=== PATIENT | female | born 1960 | race Hispanic/Latino ===

== ENCOUNTER → 2020-12-06 | Day surgery (SDC) | payer OTHER ==
[2020-12-01 15:10] LABS: BASOPHILS # (AUTO) 0.1 (0.0-0.1); BASOPHILS % 0.4 % (0.0-1.0); EOSINOPHILS # (AUTO) 0.2 (0.0-0.4); EOSINOPHILS % 1.6 % (0.0-6.0); HEMATOCRIT 34.6 % (34.2-44.1); HEMOGLOBIN 11.2 g/dL (12.0-16.0); LYMPHOCYTES # (AUTO) 3.3 (1.0-3.2); LYMPHOCYTES % 28.9 % (18.0-39.1); MEAN CORPUSCULAR HEMOGLOBIN 29.6 pg (28-32); MEAN CORPUSCULAR HGB CONC 32.4 g/dL (31-35); MEAN CORPUSCULAR VOLUME 91.5 fL (81-99); MONOCYTES # (AUTO) 0.8 (0.2-0.8); MONOCYTES % 7.3 % (4.4-11.3); NEUTROPHILS # (AUTO) 7.1 (2.1-6.9); NEUTROPHILS % 61.3 % (38.7-80.0); PLATELET COUNT 429 x10e3/uL (140-360); RED BLOOD COUNT 3.78 x10e6/uL (3.6-5.1); RED CELL DISTRIBUTION WIDTH 12.4 % (11.7-14.4)
[2020-12-01 15:18] LABS: INR 0.9; PROTHROMBIN TIME 12.3 seconds (11.9-14.5)
[2020-12-01 15:19] LABS: PARTIAL THROMBOPLASTIN TIME 27.8 seconds (23.8-35.5)
[2020-12-01 15:25] LABS: ALBUMIN 3.3 g/dL (3.5-5.0); ALBUMIN/GLOBULIN RATIO 0.6 (0.8-2.0); ANION GAP 16.2 mmol/L (8-16); CALCIUM 9.9 mg/dL (8.4-10.2); CREATININE, SERUM 0.92 mg/dL (0.57-1.11); POTASSIUM 4.2 mmol/L (3.5-5.1)
[~2020-12-06] VITALS: Ht 167.6 cm; Wt 70.1 kg
[2020-12-06] VITALS (9 sets, daily range): BP systolic 123–150; BP diastolic 66–77
[~2020-12-06] MED LIST: ASPIRIN 325 MG TAB ONE; ASPIRIN CHEW81 MG PO; ATORVASTATIN CA20 MG PO; CARVEDILOL12.5 MG PO; CLOPIDOGREL BISULFATE 75 MG TAB ONE; FENTANYL CITRATE/PF 100MCG/2 ML INJ ONE; GLIMEPIRIDE2 MG PO; HEPARIN SOD/SOD CHLORIDE 2,000 ML ONE; IOPAMIDOL 300MG/ML 100 ML INFUS..BTL IV ONE; LIDOCAINE HCL 2% LOCAL 20 ML VIAL ONE; LOSARTAN POTAS100 MG PO; METFORMIN HCL500 MG PO; MIDAZOLAM HCL 2 MG/2 ML VIAL ONE; PROTONIX20 MG PO; SODIUM CHLORIDE 0.9% 1000ML 1,000 ML ONE
== END | disposition home or self-care (01) ==
LOC: CATH LAB 07:10
PROVIDERS: ATTEND Internal Medicine Cardiovascular Disease
DX: I70.223 Atherosclerosis of native arteries of extremities with rest pain, bilateral legs (principal); I70.92 Chronic total occlusion of artery of the extremities; I70.213 Atherosclerosis of native arteries of extremities with intermittent claudication, bilateral legs; L97.913 Non-pressure chronic ulcer of unspecified part of right lower leg with necrosis of muscle; I10 Essential (primary) hypertension; I87.2 Venous insufficiency (chronic) (peripheral); E78.00 Pure hypercholesterolemia, unspecified; R60.0 Localized edema; E78.5 Hyperlipidemia, unspecified; E08.59 Diabetes mellitus due to underlying condition with other circulatory complications; Z01.812 Encounter for preprocedural laboratory examination; Z20.822 Contact with and (suspected) exposure to COVID-19; Z79.84 Long term (current) use of oral hypoglycemic drugs; Z79.82 Long term (current) use of aspirin; Z83.3 Family history of diabetes mellitus
CPT/HCPCS: 36415; 37228; 76937; 80053; 85025; 85610; 85730; C1760; C1769 ×3; C1887 ×2; J2001; J2250; J3010; J7030; Q9967; U0002; 36247; 75630; 99152; 99153

== ENCOUNTER 2020-12-23 16:15 | Inpatient (IN) | payer OTHER ==
[~2020-12-23] VITALS: Ht 162.6 cm; Wt 70.3 kg
[~2020-12-23 16:15] MED LIST changes: -ASPIRIN 325 MG TAB ONE; -CLOPIDOGREL BISULFATE 75 MG TAB ONE; -FENTANYL CITRATE/PF 100MCG/2 ML INJ ONE; -HEPARIN SOD/SOD CHLORIDE 2,000 ML ONE; -IOPAMIDOL 300MG/ML 100 ML INFUS..BTL IV ONE; -LIDOCAINE HCL 2% LOCAL 20 ML VIAL ONE; -MIDAZOLAM HCL 2 MG/2 ML VIAL ONE; -SODIUM CHLORIDE 0.9% 1000ML 1,000 ML ONE
[2020-12-23] MEDS ORDERED: KETOROLAC TROMETHAMINE 30 MG/ML VIAL ONE (17:19)
[2020-12-23] MEDS ORDERED: LIDOCAINE HCL 2% LOCAL INJ 5 ML SDV VIAL INJ ONE (17:19)
[2020-12-23] MEDS ORDERED: SEVOFLURANE INHAL SOLN 250 ML PEN BTL ONE (17:19)
[2020-12-23] MEDS ORDERED: DEXAMETHASONE SOD PHOS INJ 4 MG/ML SDV ONE (17:19)
[2020-12-23] MEDS ORDERED: PROPOFOL IV EMULSION 10 MG/ML 20 ML VIAL ONE (17:19)
[2020-12-23] MEDS ORDERED: POVIDONE IODINE 0.05% 0.05 % ML PO ONE (17:19)
[2020-12-23] MEDS ORDERED: ONDANSETRON HCL INJ 2MG/ML 2ML 2 MG/ML VIAL ONE (17:19)
[2020-12-23] MEDS ORDERED: CEFEPIME 1 GM in SODIUM CHLORIDE 0.9% 50ML 50 ML IV SCH (18:00)
[2020-12-23] MEDS ORDERED: Vancomycin IV 1 GM in SODIUM CHLORIDE 0.9% 250ML 250 ML IV SCH (18:30)
[2020-12-23 18:44] LABS: BASOPHILS # (AUTO) 0.1 (0.0-0.1); BASOPHILS % 0.4 % (0.0-1.0); EOSINOPHILS # (AUTO) 0.1 (0.0-0.4); EOSINOPHILS % 0.7 % (0.0-6.0); HEMOGLOBIN 9.8 g/dL (12.0-16.0); LYMPHOCYTES # (AUTO) 2.4 (1.0-3.2); LYMPHOCYTES % 13.8 % (18.0-39.1); MEAN CORPUSCULAR HEMOGLOBIN 29.1 pg (28-32); MEAN CORPUSCULAR HGB CONC 31.6 g/dL (31-35); MONOCYTES # (AUTO) 1.3 (0.2-0.8); MONOCYTES % 7.3 % (4.4-11.3); NEUTROPHILS # (AUTO) 13.7 (2.1-6.9); PLATELET COUNT 558 x10e3/uL (140-360); RED BLOOD COUNT 3.37 x10e6/uL (3.6-5.1); RED CELL DISTRIBUTION WIDTH 12.5 % (11.7-14.4)
[2020-12-23 19:01] LABS: ALBUMIN 2.9 g/dL (3.5-5.0); ALBUMIN/GLOBULIN RATIO 0.5 (0.8-2.0); ANION GAP 17.4 mmol/L (8-16); CREATININE, SERUM 1.09 mg/dL (0.57-1.11); POTASSIUM 4.4 mmol/L (3.5-5.1)
[2020-12-23 20:13] LABS: INR 1.04; PROTHROMBIN TIME 13.8 seconds (11.9-14.5)
[2020-12-23 20:14] LABS: PARTIAL THROMBOPLASTIN TIME 39.8 seconds (23.8-35.5)
[2020-12-23] MEDS ORDERED: DEXTROSE 50% SYRINGE 50 ML IV PRN (20:30)
[2020-12-23] MEDS: INSULIN REGULAR, HUMAN 100 UNIT/1 ML SQ SCH (21:00)
[2020-12-24] VITALS (7 sets, daily range): BP systolic 121–144; BP diastolic 56–85
[2020-12-24] MEDS: SODIUM CHLORIDE 0.9% 1000ML 1,000 ML IV SCH ×3 (00:30→12:30)
[2020-12-24] MEDS: CEFEPIME 1 GM in SODIUM CHLORIDE 0.9% 50ML 50 ML IV SCH ×2 (00:30→08:20)
[2020-12-24] MEDS: MORPHINE SULFATE INJ 2 MG/ML SYR IV PRN ×4 (00:30→17:14)
[2020-12-24] MEDS: ONDANSETRON HCL INJ 2MG/ML 2ML 2 MG/ML VIAL IV PRN ×2 (00:40→04:54)
[2020-12-24] MEDS: Vancomycin IV 1 GM in SODIUM CHLORIDE 0.9% 250ML 250 ML IV SCH ×3 (02:00→20:47)
[2020-12-24] MEDS: INSULIN REGULAR, HUMAN 100 UNIT/1 ML SQ SCH ×4 (07:30→20:45)
[2020-12-24 08:50] LABS: BASOPHILS # (AUTO) 0.1 (0.0-0.1); BASOPHILS % 0.4 % (0.0-1.0); EOSINOPHILS # (AUTO) 0.2 (0.0-0.4); HEMATOCRIT 26.4 % (34.2-44.1); HEMOGLOBIN 8.7 g/dL (12.0-16.0); LYMPHOCYTES # (AUTO) 2.3 (1.0-3.2); LYMPHOCYTES % 15.9 % (18.0-39.1); MEAN CORPUSCULAR HEMOGLOBIN 29.6 pg (28-32); MEAN CORPUSCULAR VOLUME 89.8 fL (81-99); MONOCYTES # (AUTO) 1.2 (0.2-0.8); NEUTROPHILS # (AUTO) 10.6 (2.1-6.9); NEUTROPHILS % 73.9 % (38.7-80.0); PLATELET COUNT 507 x10e3/uL (140-360); RED BLOOD COUNT 2.94 x10e6/uL (3.6-5.1); RED CELL DISTRIBUTION WIDTH 12.4 % (11.7-14.4)
[2020-12-24 09:12] LABS: ALBUMIN 2.4 g/dL (3.5-5.0); ALBUMIN/GLOBULIN RATIO 0.4 (0.8-2.0); ANION GAP 15.3 mmol/L (8-16); CALCIUM 9.2 mg/dL (8.4-10.2); CREATININE, SERUM 0.83 mg/dL (0.57-1.11); POTASSIUM 4.3 mmol/L (3.5-5.1)
[2020-12-24] MEDS: PIPERACILLIN/TAZOBACTAM 3.375 GM in SODIUM CHLORIDE 0.9% 50ML 50 ML IV SCH ×2 (12:30→17:11)
[2020-12-24] MEDS: GLIMEPIRIDE 2 MG TAB PO SCH (17:10)
[2020-12-24] MEDS: METFORMIN HCL 500 MG TAB PO SCH (17:11)
[2020-12-24] MEDS: CARVEDILOL 12.5 MG TAB PO SCH (17:11)
[2020-12-24] MEDS: ATORVASTATIN 40 MG TAB PO SCH (20:45)
[2020-12-25] VITALS: BP 123/67
[2020-12-25] MEDS: SODIUM CHLORIDE 0.9% 1000ML 1,000 ML IV SCH ×4 (00:26→21:30)
[2020-12-25] MEDS: MORPHINE SULFATE INJ 2 MG/ML SYR IV PRN ×2 (00:26→09:58)
[2020-12-25] MEDS: PIPERACILLIN/TAZOBACTAM 3.375 GM in SODIUM CHLORIDE 0.9% 50ML 50 ML IV SCH ×2 (00:26→06:13)
[2020-12-25 04:00] VITALS: BP 116/65
[2020-12-25 06:29] LABS: BASOPHILS # (AUTO) 0.1 (0.0-0.1); BASOPHILS % 0.4 % (0.0-1.0); EOSINOPHILS # (AUTO) 0.2 (0.0-0.4); EOSINOPHILS % 1.3 % (0.0-6.0); HEMATOCRIT 24.1 % (34.2-44.1); HEMOGLOBIN 7.6 g/dL (12.0-16.0); LYMPHOCYTES # (AUTO) 3.5 (1.0-3.2); LYMPHOCYTES % 25.4 % (18.0-39.1); MEAN CORPUSCULAR HEMOGLOBIN 29.1 pg (28-32); MEAN CORPUSCULAR HGB CONC 31.5 g/dL (31-35); MEAN CORPUSCULAR VOLUME 92.3 fL (81-99); MONOCYTES # (AUTO) 1.4 (0.2-0.8); MONOCYTES % 10.1 % (4.4-11.3); NEUTROPHILS # (AUTO) 8.4 (2.1-6.9); NEUTROPHILS % 61.8 % (38.7-80.0); PLATELET COUNT 515 x10e3/uL (140-360); RED BLOOD COUNT 2.61 x10e6/uL (3.6-5.1); RED CELL DISTRIBUTION WIDTH 12.5 % (11.7-14.4)
[2020-12-25] MEDS ORDERED: SODIUM CHLORIDE 0.9% 50ML 50 ML ONE (06:46)
[2020-12-25] MEDS: INSULIN REGULAR, HUMAN 100 UNIT/1 ML SQ SCH ×4 (07:30→21:00)
[2020-12-25 07:59] VITALS: BP 119/55
[2020-12-25] MEDS: ASPIRIN 81 MG CHEW TAB PO SCH (09:56)
[2020-12-25] MEDS: Vancomycin IV 1 GM in SODIUM CHLORIDE 0.9% 250ML 250 ML IV SCH (09:56)
[2020-12-25] MEDS: METFORMIN HCL 500 MG TAB PO SCH ×2 (09:56→16:52)
[2020-12-25] MEDS: GLIMEPIRIDE 2 MG TAB PO SCH ×2 (09:56→16:51)
[2020-12-25] MEDS: CARVEDILOL 12.5 MG TAB PO SCH ×2 (09:57→16:52)
[2020-12-25] MEDS: PANTOPRAZOLE SOD 40 MG TABEC PO SCH (09:57)
[2020-12-25] MEDS: LOSARTAN POTASSIUM 100 MG TAB PO SCH (09:57)
[2020-12-25] MEDS: ONDANSETRON HCL INJ 2MG/ML 2ML 2 MG/ML VIAL IV PRN (09:58)
[2020-12-25 11:58] VITALS: BP 107/53
[2020-12-25] MEDS ORDERED: CLINDAMYCIN PHOS 900MG/ 50ML 50 ML IV SCH (12:00)
[2020-12-25 16:01] VITALS: BP 118/55
[2020-12-25] MEDS: CLINDAMYCIN PHOS 900MG/ 50ML 50 ML IV SCH ×2 (16:50→21:11)
[2020-12-25 20:00] VITALS: BP 131/72
[2020-12-25] MEDS: ATORVASTATIN 40 MG TAB PO SCH (21:11)
[2020-12-26] VITALS (7 sets, daily range): BP systolic 118–153; BP diastolic 59–79
[2020-12-26] MEDS: CLINDAMYCIN PHOS 900MG/ 50ML 50 ML IV SCH ×4 (03:57→21:45)
[2020-12-26] MEDS: SODIUM CHLORIDE 0.9% 1000ML 1,000 ML IV SCH ×2 (03:58→21:55)
[2020-12-26] MEDS: INSULIN REGULAR, HUMAN 100 UNIT/1 ML SQ SCH ×4 (07:30→21:00)
[2020-12-26] MEDS: GLIMEPIRIDE 2 MG TAB PO SCH ×2 (08:19→17:00)
[2020-12-26] MEDS: PANTOPRAZOLE SOD 40 MG TABEC PO SCH (08:19)
[2020-12-26] MEDS: METFORMIN HCL 500 MG TAB PO SCH ×2 (08:19→17:00)
[2020-12-26] MEDS: ASPIRIN 81 MG CHEW TAB PO SCH (08:19)
[2020-12-26] MEDS: ONDANSETRON HCL INJ 2MG/ML 2ML 2 MG/ML VIAL IV PRN ×3 (08:25→18:25)
[2020-12-26] MEDS: CARVEDILOL 12.5 MG TAB PO SCH ×2 (08:25→17:15)
[2020-12-26] MEDS: CEFTRIAXONE 2 GM in SODIUM CHLORIDE 0.9% 100 ML IV SCH (08:25)
[2020-12-26] MEDS: MORPHINE SULFATE INJ 2 MG/ML SYR IV PRN ×3 (08:25→18:25)
[2020-12-26] MEDS: LOSARTAN POTASSIUM 100 MG TAB PO SCH (08:25)
[2020-12-26] MEDS: ATORVASTATIN 40 MG TAB PO SCH (21:55)
[2020-12-27] VITALS (9 sets, daily range): BP systolic 113–157; BP diastolic 58–71
[2020-12-27] MEDS: CLINDAMYCIN PHOS 900MG/ 50ML 50 ML IV SCH ×4 (04:06→21:00)
[2020-12-27] MEDS: SODIUM CHLORIDE 0.9% 1000ML 1,000 ML IV SCH ×4 (04:06→17:44)
[2020-12-27] MEDS: MORPHINE SULFATE INJ 2 MG/ML SYR IV PRN ×3 (04:07→17:44)
[2020-12-27] MEDS: ONDANSETRON HCL INJ 2MG/ML 2ML 2 MG/ML VIAL IV PRN ×3 (05:00→17:44)
[2020-12-27] MEDS: INSULIN REGULAR, HUMAN 100 UNIT/1 ML SQ SCH ×4 (07:30→20:53)
[2020-12-27] MEDS: ASPIRIN 81 MG CHEW TAB PO SCH (08:25)
[2020-12-27] MEDS: GLIMEPIRIDE 2 MG TAB PO SCH ×2 (08:25→16:51)
[2020-12-27] MEDS: CEFTRIAXONE 2 GM in SODIUM CHLORIDE 0.9% 100 ML IV SCH (08:25)
[2020-12-27] MEDS: PANTOPRAZOLE SOD 40 MG TABEC PO SCH (08:25)
[2020-12-27] MEDS: CARVEDILOL 12.5 MG TAB PO SCH ×2 (08:25→16:52)
[2020-12-27] MEDS: METFORMIN HCL 500 MG TAB PO SCH ×2 (08:25→16:51)
[2020-12-27] MEDS: LOSARTAN POTASSIUM 100 MG TAB PO SCH (08:25)
[2020-12-27] MEDS: ATORVASTATIN 40 MG TAB PO SCH (21:00)
[2020-12-27] MEDS: ACETAMINOPHEN 325 MG TAB PO PRN (21:01)
[2020-12-28 01:36] VITALS: BP 116/70
[2020-12-28] MEDS: CLINDAMYCIN PHOS 900MG/ 50ML 50 ML IV SCH ×4 (04:27→21:33)
[2020-12-28] MEDS: MORPHINE SULFATE INJ 2 MG/ML SYR IV PRN ×2 (04:28→20:15)
[2020-12-28] MEDS: SODIUM CHLORIDE 0.9% 1000ML 1,000 ML IV SCH ×2 (05:27→12:00)
[2020-12-28 05:53] VITALS: BP 142/75
[2020-12-28] MEDS ORDERED: BETAMETHASONE DISODIUM PHOS 6 MG/ML VIAL ONE (06:34)
[2020-12-28] MEDS ORDERED: BUPIVACAINE HCL 0.5% INJ 30 ML VIAL INJ ONE (06:34)
[2020-12-28] MEDS ORDERED: LIDOCAINE HCL 1% LOCAL INJ 20 ML VIAL ONE (06:34)
[2020-12-28 07:02] LABS: BASOPHILS % 0.3 % (0.0-1.0); EOSINOPHILS # (AUTO) 0.2 (0.0-0.4); EOSINOPHILS % 1.8 % (0.0-6.0); HEMATOCRIT 23.8 % (34.2-44.1); LYMPHOCYTES # (AUTO) 2.4 (1.0-3.2); LYMPHOCYTES % 18.3 % (18.0-39.1); MEAN CORPUSCULAR HEMOGLOBIN 31.5 pg (28-32); MEAN CORPUSCULAR HGB CONC 33.6 g/dL (31-35); MEAN CORPUSCULAR VOLUME 93.7 fL (81-99); MONOCYTES # (AUTO) 1.1 (0.2-0.8); MONOCYTES % 8.5 % (4.4-11.3); NEUTROPHILS # (AUTO) 9.2 (2.1-6.9); NEUTROPHILS % 70.2 % (38.7-80.0); PLATELET COUNT 548 x10e3/uL (140-360); RED BLOOD COUNT 2.54 x10e6/uL (3.6-5.1); RED CELL DISTRIBUTION WIDTH 13.1 % (11.7-14.4)
[2020-12-28] MEDS: INSULIN REGULAR, HUMAN 100 UNIT/1 ML SQ SCH ×4 (07:30→20:33)
[2020-12-28] MEDS ORDERED: MUPIROCIN 2% OINT 22 GM TUBE ONE (07:38)
[2020-12-28 09:00] VITALS: BP 119/70
[2020-12-28] MEDS: METFORMIN HCL 500 MG TAB PO SCH ×2 (09:49→16:32)
[2020-12-28] MEDS: GLIMEPIRIDE 2 MG TAB PO SCH ×2 (09:49→16:31)
[2020-12-28] MEDS: CEFTRIAXONE 2 GM in SODIUM CHLORIDE 0.9% 100 ML IV SCH (09:49)
[2020-12-28] MEDS: ASPIRIN 81 MG CHEW TAB PO SCH (09:49)
[2020-12-28] MEDS: LOSARTAN POTASSIUM 100 MG TAB PO SCH (09:51)
[2020-12-28] MEDS: PANTOPRAZOLE SOD 40 MG TABEC PO SCH (09:51)
[2020-12-28] MEDS: CARVEDILOL 12.5 MG TAB PO SCH ×2 (09:51→16:32)
[2020-12-28 12:03] VITALS: BP 124/68
[2020-12-28 16:03] VITALS: BP 123/75
[2020-12-28 20:00] VITALS: BP 149/68
[2020-12-28] MEDS: ATORVASTATIN 40 MG TAB PO SCH (20:33)
[2020-12-28] MEDS: ONDANSETRON HCL INJ 2MG/ML 2ML 2 MG/ML VIAL IV PRN (20:50)
[2020-12-28] MEDS: HYDROCODONE/APAP 7.5MG-325MG 1 EA TAB PO PRN (23:16)
[2020-12-29] VITALS (9 sets, daily range): BP systolic 117–147; BP diastolic 70–86
[2020-12-29] MEDS: SODIUM CHLORIDE 0.9% 1000ML 1,000 ML IV SCH ×3 (04:25→12:45)
[2020-12-29] MEDS: CLINDAMYCIN PHOS 900MG/ 50ML 50 ML IV SCH ×4 (04:25→22:12)
[2020-12-29 05:38] LABS: BASOPHILS # (AUTO) 0.1 (0.0-0.1); BASOPHILS % 0.3 % (0.0-1.0); EOSINOPHILS # (AUTO) 0.1 (0.0-0.4); EOSINOPHILS % 0.7 % (0.0-6.0); HEMATOCRIT 24.6 % (34.2-44.1); HEMOGLOBIN 7.7 g/dL (12.0-16.0); LYMPHOCYTES # (AUTO) 3.3 (1.0-3.2); LYMPHOCYTES % 17.3 % (18.0-39.1); MEAN CORPUSCULAR HEMOGLOBIN 28.9 pg (28-32); MEAN CORPUSCULAR HGB CONC 31.3 g/dL (31-35); MEAN CORPUSCULAR VOLUME 92.5 fL (81-99); MONOCYTES # (AUTO) 1.6 (0.2-0.8); MONOCYTES % 8.5 % (4.4-11.3); NEUTROPHILS # (AUTO) 13.6 (2.1-6.9); NEUTROPHILS % 72.2 % (38.7-80.0); PLATELET COUNT 566 x10e3/uL (140-360); RED BLOOD COUNT 2.66 x10e6/uL (3.6-5.1); RED CELL DISTRIBUTION WIDTH 12.5 % (11.7-14.4)
[2020-12-29 05:59] LABS: ALBUMIN 2.2 g/dL (3.5-5.0); ALBUMIN/GLOBULIN RATIO 0.4 (0.8-2.0); ANION GAP 17.8 mmol/L (8-16); CREATININE, SERUM 0.97 mg/dL (0.57-1.11); POTASSIUM 3.8 mmol/L (3.5-5.1)
[2020-12-29] MEDS: INSULIN REGULAR, HUMAN 100 UNIT/1 ML SQ SCH ×4 (07:30→20:35)
[2020-12-29] MEDS: GLIMEPIRIDE 2 MG TAB PO SCH (07:45)
[2020-12-29] MEDS: METFORMIN HCL 500 MG TAB PO SCH ×2 (07:45→15:29)
[2020-12-29] MEDS: ONDANSETRON HCL INJ 2MG/ML 2ML 2 MG/ML VIAL IV PRN (07:55)
[2020-12-29] MEDS: MORPHINE SULFATE INJ 2 MG/ML SYR IV PRN (07:55)
[2020-12-29] MEDS: PANTOPRAZOLE SOD 40 MG TABEC PO SCH (08:30)
[2020-12-29] MEDS: LOSARTAN POTASSIUM 100 MG TAB PO SCH (08:30)
[2020-12-29] MEDS: CEFTRIAXONE 2 GM in SODIUM CHLORIDE 0.9% 100 ML IV SCH (08:30)
[2020-12-29] MEDS: ASPIRIN 81 MG CHEW TAB PO SCH (08:30)
[2020-12-29] MEDS: CARVEDILOL 12.5 MG TAB PO SCH ×2 (08:30→16:07)
[2020-12-29] MEDS ORDERED: LOPERAMIDE HCL 2 MG CAP PO PRN (09:30)
[2020-12-29] MEDS: COLLAGENASE 5 GM TUBE TP SCH (12:41)
[2020-12-29] MEDS: HYDROCODONE/APAP 7.5MG-325MG 1 EA TAB PO PRN ×2 (14:15→20:53)
[2020-12-29] MEDS: ATORVASTATIN 40 MG TAB PO SCH (20:53)
[2020-12-30] VITALS (7 sets, daily range): BP systolic 90–156; BP diastolic 46–76
[2020-12-30] MEDS: MORPHINE SULFATE INJ 2 MG/ML SYR IV PRN ×3 (00:20→15:00)
[2020-12-30] MEDS: SODIUM CHLORIDE 0.9% 1000ML 1,000 ML IV SCH ×4 (04:30→20:51)
[2020-12-30 04:57] LABS: BASOPHILS # (AUTO) 0.1 (0.0-0.1); BASOPHILS % 0.3 % (0.0-1.0); EOSINOPHILS # (AUTO) 0.3 (0.0-0.4); EOSINOPHILS % 1.7 % (0.0-6.0); HEMATOCRIT 21.4 % (34.2-44.1); LYMPHOCYTES # (AUTO) 3.7 (1.0-3.2); MEAN CORPUSCULAR HEMOGLOBIN 29.7 pg (28-32); MEAN CORPUSCULAR HGB CONC 32.7 g/dL (31-35); MEAN CORPUSCULAR VOLUME 90.7 fL (81-99); MONOCYTES # (AUTO) 1.4 (0.2-0.8); MONOCYTES % 8.8 % (4.4-11.3); NEUTROPHILS # (AUTO) 9.8 (2.1-6.9); NEUTROPHILS % 63.4 % (38.7-80.0); PLATELET COUNT 470 x10e3/uL (140-360); RED BLOOD COUNT 2.36 x10e6/uL (3.6-5.1); RED CELL DISTRIBUTION WIDTH 12.6 % (11.7-14.4)
[2020-12-30 05:21] LABS: ANION GAP 12.8 mmol/L (8-16); CALCIUM 8.4 mg/dL (8.4-10.2); CREATININE, SERUM 0.89 mg/dL (0.57-1.11); POTASSIUM 3.8 mmol/L (3.5-5.1)
[2020-12-30] MEDS: CLINDAMYCIN PHOS 900MG/ 50ML 50 ML IV SCH (06:11)
[2020-12-30] MEDS: ONDANSETRON HCL INJ 2MG/ML 2ML 2 MG/ML VIAL IV PRN (06:32)
[2020-12-30] MEDS: INSULIN REGULAR, HUMAN 100 UNIT/1 ML SQ SCH ×4 (07:30→21:23)
[2020-12-30] MEDS: CEFTRIAXONE 2 GM in SODIUM CHLORIDE 0.9% 100 ML IV SCH (09:01)
[2020-12-30] MEDS: ASPIRIN 81 MG CHEW TAB PO SCH (09:04)
[2020-12-30] MEDS: METFORMIN HCL 500 MG TAB PO SCH ×2 (09:04→17:00)
[2020-12-30] MEDS: PANTOPRAZOLE SOD 40 MG TABEC PO SCH (09:07)
[2020-12-30] MEDS: CARVEDILOL 12.5 MG TAB PO SCH ×2 (09:07→17:39)
[2020-12-30] MEDS: LOSARTAN POTASSIUM 100 MG TAB PO SCH (09:07)
[2020-12-30] MEDS ORDERED: SODIUM CHLORIDE 0.9% 250ML 250 ML IV ONE (09:30)
[2020-12-30] MEDS: MEROPENEM 1 GM in SODIUM CHLORIDE 0.9% 100 ML IV SCH ×2 (14:00→21:16)
[2020-12-30] MEDS: ATORVASTATIN 40 MG TAB PO SCH (20:52)
[2020-12-31] VITALS (8 sets, daily range): BP systolic 126–153; BP diastolic 49–69
[2020-12-31] MEDS: SODIUM CHLORIDE 0.9% 1000ML 1,000 ML IV SCH ×3 (04:22→20:33)
[2020-12-31] MEDS: MEROPENEM 1 GM in SODIUM CHLORIDE 0.9% 100 ML IV SCH ×3 (05:28→21:11)
[2020-12-31] MEDS: INSULIN REGULAR, HUMAN 100 UNIT/1 ML SQ SCH ×4 (07:30→21:10)
[2020-12-31] MEDS: METFORMIN HCL 500 MG TAB PO SCH ×2 (08:00→17:02)
[2020-12-31] MEDS: ONDANSETRON HCL INJ 2MG/ML 2ML 2 MG/ML VIAL IV PRN (08:31)
[2020-12-31] MEDS: HYDROCODONE/APAP 7.5MG-325MG 1 EA TAB PO PRN ×2 (08:31→20:34)
[2020-12-31] MEDS: ASPIRIN 81 MG CHEW TAB PO SCH (09:00)
[2020-12-31] MEDS: CARVEDILOL 12.5 MG TAB PO SCH ×2 (09:00→17:02)
[2020-12-31] MEDS: PANTOPRAZOLE SOD 40 MG TABEC PO SCH (09:00)
[2020-12-31] MEDS: LOSARTAN POTASSIUM 100 MG TAB PO SCH (09:00)
[2020-12-31] MEDS: ATORVASTATIN 40 MG TAB PO SCH (20:33)
[2021-01-01] VITALS (8 sets, daily range): BP systolic 145–170; BP diastolic 63–73
[2021-01-01] MEDS: SODIUM CHLORIDE 0.9% 1000ML 1,000 ML IV SCH (04:26)
[2021-01-01] MEDS: MEROPENEM 1 GM in SODIUM CHLORIDE 0.9% 100 ML IV SCH ×3 (05:17→22:00)
[2021-01-01] MEDS: ONDANSETRON HCL INJ 2MG/ML 2ML 2 MG/ML VIAL IV PRN (05:32)
[2021-01-01] MEDS: HYDROCODONE/APAP 7.5MG-325MG 1 EA TAB PO PRN ×3 (05:32→22:56)
[2021-01-01 06:35] LABS: HEMATOCRIT 29.1 % (34.2-44.1); HEMOGLOBIN 9.3 g/dL (12.0-16.0); MEAN CORPUSCULAR HEMOGLOBIN 29.2 pg (28-32); MEAN CORPUSCULAR VOLUME 91.5 fL (81-99); PLATELET COUNT 536 x10e3/uL (140-360); RED BLOOD COUNT 3.18 x10e6/uL (3.6-5.1); RED CELL DISTRIBUTION WIDTH 13.5 % (11.7-14.4)
[2021-01-01 06:54] LABS: ANION GAP 14.3 mmol/L (8-16); CALCIUM 9.3 mg/dL (8.4-10.2); CREATININE, SERUM 0.84 mg/dL (0.57-1.11); POTASSIUM 4.3 mmol/L (3.5-5.1)
[2021-01-01] MEDS: INSULIN REGULAR, HUMAN 100 UNIT/1 ML SQ SCH ×4 (07:30→21:00)
[2021-01-01] MEDS: CARVEDILOL 12.5 MG TAB PO SCH ×2 (08:27→17:00)
[2021-01-01] MEDS: METFORMIN HCL 500 MG TAB PO SCH ×2 (08:27→17:00)
[2021-01-01] MEDS: ASPIRIN 81 MG CHEW TAB PO SCH (08:27)
[2021-01-01] MEDS: LOSARTAN POTASSIUM 100 MG TAB PO SCH (08:28)
[2021-01-01] MEDS: PANTOPRAZOLE SOD 40 MG TABEC PO SCH (08:28)
[2021-01-01] MEDS ORDERED: HYDRALAZINE HCL 20 MG/ML VIAL IV PRN (13:30)
[2021-01-01 14:28] LABS: EOSINOPHILS % (MANUAL) 4 % (0-7); LYMPHOCYTES % (MANUAL) 14 % (19-48); MONOCYTES % (MANUAL) 8 % (3.4-9.0); NEUTROPHILS % (MANUAL) 74 % (40-74)
[2021-01-01 14:29] LABS: PLATELET ESTIMATE MARKEDLY INCREASED; PLATELET MORPHOLOGY COMMENT NORMAL
[2021-01-01 14:30] LABS: HYPOCHROMASIA SLIGHT
[2021-01-01] MEDS: GLIMEPIRIDE 2 MG TAB PO SCH (17:00)
[2021-01-01] MEDS: COLLAGENASE 5 GM TUBE TP SCH (18:00)
[2021-01-01] MEDS: ATORVASTATIN 40 MG TAB PO SCH (21:00)
[2021-01-02] VITALS (8 sets, daily range): BP systolic 130–171; BP diastolic 54–84
[2021-01-02] MEDS: MEROPENEM 1 GM in SODIUM CHLORIDE 0.9% 100 ML IV SCH ×3 (06:17→21:29)
[2021-01-02] MEDS: HYDROCODONE/APAP 7.5MG-325MG 1 EA TAB PO PRN ×2 (06:18→21:30)
[2021-01-02] MEDS: ACETAMINOPHEN 325 MG TAB PO PRN (07:16)
[2021-01-02] MEDS: ONDANSETRON HCL INJ 2MG/ML 2ML 2 MG/ML VIAL IV PRN (07:16)
[2021-01-02] MEDS: INSULIN REGULAR, HUMAN 100 UNIT/1 ML SQ SCH ×4 (07:30→20:46)
[2021-01-02] MEDS: GLIMEPIRIDE 2 MG TAB PO SCH ×2 (08:00→09:00)
[2021-01-02] MEDS: METFORMIN HCL 500 MG TAB PO SCH ×2 (08:00→17:00)
[2021-01-02] MEDS ORDERED: AMLODIPINE BESYLATE 5 MG TAB PO SCH (09:00)
[2021-01-02] MEDS: ASPIRIN 81 MG CHEW TAB PO SCH (09:13)
[2021-01-02] MEDS: CARVEDILOL 12.5 MG TAB PO SCH ×2 (09:13→17:00)
[2021-01-02] MEDS: PANTOPRAZOLE SOD 40 MG TABEC PO SCH (09:14)
[2021-01-02] MEDS: LOSARTAN POTASSIUM 100 MG TAB PO SCH (09:14)
[2021-01-02 16:23] LABS: BASOPHILS # (AUTO) 0.1 (0.0-0.1); BASOPHILS % 0.4 % (0.0-1.0); EOSINOPHILS # (AUTO) 0.2 (0.0-0.4); EOSINOPHILS % 1.4 % (0.0-6.0); HEMATOCRIT 32.3 % (34.2-44.1); HEMOGLOBIN 10.4 g/dL (12.0-16.0); LYMPHOCYTES # (AUTO) 3.7 (1.0-3.2); LYMPHOCYTES % 25.8 % (18.0-39.1); MEAN CORPUSCULAR HEMOGLOBIN 28.4 pg (28-32); MEAN CORPUSCULAR HGB CONC 32.2 g/dL (31-35); MEAN CORPUSCULAR VOLUME 88.3 fL (81-99); MONOCYTES # (AUTO) 1.3 (0.2-0.8); NEUTROPHILS # (AUTO) 8.9 (2.1-6.9); NEUTROPHILS % 62.7 % (38.7-80.0); PLATELET COUNT 556 x10e3/uL (140-360); RED BLOOD COUNT 3.66 x10e6/uL (3.6-5.1)
[2021-01-02] MEDS: ATORVASTATIN 40 MG TAB PO SCH (21:29)
[2021-01-03] VITALS (8 sets, daily range): BP systolic 116–143; BP diastolic 61–76
[2021-01-03] MEDS: MEROPENEM 1 GM in SODIUM CHLORIDE 0.9% 100 ML IV SCH ×3 (06:02→21:58)
[2021-01-03] MEDS: ONDANSETRON HCL INJ 2MG/ML 2ML 2 MG/ML VIAL IV PRN (07:19)
[2021-01-03] MEDS: INSULIN REGULAR, HUMAN 100 UNIT/1 ML SQ SCH ×4 (07:30→20:23)
[2021-01-03] MEDS: CARVEDILOL 12.5 MG TAB PO SCH ×2 (09:30→17:05)
[2021-01-03] MEDS: PANTOPRAZOLE SOD 40 MG TABEC PO SCH (09:30)
[2021-01-03] MEDS: AMLODIPINE BESYLATE 10 MG TAB PO SCH (09:30)
[2021-01-03] MEDS: METFORMIN HCL 500 MG TAB PO SCH ×2 (09:30→17:50)
[2021-01-03] MEDS: GLIMEPIRIDE 2 MG TAB PO SCH ×2 (09:30→17:50)
[2021-01-03] MEDS: LOSARTAN POTASSIUM 100 MG TAB PO SCH (09:30)
[2021-01-03] MEDS: ASPIRIN 81 MG CHEW TAB PO SCH (09:30)
[2021-01-03] MEDS: HYDROCODONE/APAP 7.5MG-325MG 1 EA TAB PO PRN ×2 (09:50→13:45)
[2021-01-03] MEDS: HYDROMORPHONE 1MG/1ML INJ IV PRN (17:05)
[2021-01-03] MEDS: ATORVASTATIN 40 MG TAB PO SCH (21:58)
[2021-01-04] VITALS (8 sets, daily range): BP systolic 117–132; BP diastolic 59–110
[2021-01-04 05:05] LABS: HEMATOCRIT 31.6 % (34.2-44.1); HEMOGLOBIN 10.2 g/dL (12.0-16.0); MEAN CORPUSCULAR HEMOGLOBIN 28.6 pg (28-32); MEAN CORPUSCULAR HGB CONC 32.3 g/dL (31-35); MEAN CORPUSCULAR VOLUME 88.5 fL (81-99); PLATELET COUNT 575 x10e3/uL (140-360); RED BLOOD COUNT 3.57 x10e6/uL (3.6-5.1); RED CELL DISTRIBUTION WIDTH 12.9 % (11.7-14.4)
[2021-01-04 05:31] LABS: CALCIUM 9.4 mg/dL (8.4-10.2); CREATININE, SERUM 0.97 mg/dL (0.57-1.11)
[2021-01-04] MEDS: MEROPENEM 1 GM in SODIUM CHLORIDE 0.9% 100 ML IV SCH ×3 (05:43→21:27)
[2021-01-04 07:29] LABS: EOSINOPHILS % (MANUAL) 1 % (0-7); LYMPHOCYTES % (MANUAL) 21 % (19-48); MONOCYTES % (MANUAL) 5 % (3.4-9.0); NEUTROPHILS % (MANUAL) 71 % (40-74); PLATELET ESTIMATE ADEQUATE; PLATELET MORPHOLOGY COMMENT NORMAL; RBC MORPHOLOGY COMMENT NORMAL
[2021-01-04] MEDS: INSULIN REGULAR, HUMAN 100 UNIT/1 ML SQ SCH ×4 (08:30→21:00)
[2021-01-04] MEDS: ASPIRIN 81 MG CHEW TAB PO SCH (08:55)
[2021-01-04] MEDS: PANTOPRAZOLE SOD 40 MG TABEC PO SCH (08:55)
[2021-01-04] MEDS: METFORMIN HCL 500 MG TAB PO SCH ×2 (08:55→16:27)
[2021-01-04] MEDS: GLIMEPIRIDE 2 MG TAB PO SCH ×2 (08:55→16:27)
[2021-01-04] MEDS: CARVEDILOL 12.5 MG TAB PO SCH ×2 (08:56→16:27)
[2021-01-04] MEDS: LOSARTAN POTASSIUM 100 MG TAB PO SCH (08:56)
[2021-01-04] MEDS: ONDANSETRON HCL INJ 2MG/ML 2ML 2 MG/ML VIAL IV PRN (08:56)
[2021-01-04] MEDS: AMLODIPINE BESYLATE 10 MG TAB PO SCH (08:56)
[2021-01-04] MEDS: ACETAMINOPHEN 325 MG TAB PO PRN (11:47)
[2021-01-04] MEDS: HYDROMORPHONE 1MG/1ML INJ IV PRN (13:44)
[2021-01-04] MEDS ORDERED: LIDOCAINE HCL 1% LOCAL INJ 20 ML VIAL INJ NR (14:00)
[2021-01-04] MEDS: ATORVASTATIN 40 MG TAB PO SCH (21:20)
[2021-01-05] VITALS (8 sets, daily range): BP systolic 114–138; BP diastolic 58–76
[2021-01-05] MEDS: MEROPENEM 1 GM in SODIUM CHLORIDE 0.9% 100 ML IV SCH ×3 (06:55→21:14)
[2021-01-05] MEDS ORDERED: LIDOCAINE HCL 1% LOCAL INJ 20 ML VIAL INJ NR (08:15)
[2021-01-05] MEDS: HYDROMORPHONE 1MG/1ML INJ IV PRN ×2 (08:23→22:17)
[2021-01-05] MEDS: ONDANSETRON HCL INJ 2MG/ML 2ML 2 MG/ML VIAL IV PRN ×2 (08:24→22:17)
[2021-01-05] MEDS: GLIMEPIRIDE 2 MG TAB PO SCH ×2 (08:25→16:02)
[2021-01-05] MEDS: CARVEDILOL 12.5 MG TAB PO SCH ×2 (08:25→16:02)
[2021-01-05] MEDS: PANTOPRAZOLE SOD 40 MG TABEC PO SCH (08:25)
[2021-01-05] MEDS: ASPIRIN 81 MG CHEW TAB PO SCH (08:25)
[2021-01-05] MEDS: METFORMIN HCL 500 MG TAB PO SCH ×2 (08:25→16:02)
[2021-01-05] MEDS: AMLODIPINE BESYLATE 10 MG TAB PO SCH (08:25)
[2021-01-05] MEDS: LOSARTAN POTASSIUM 100 MG TAB PO SCH (08:25)
[2021-01-05] MEDS: INSULIN REGULAR, HUMAN 100 UNIT/1 ML SQ SCH ×4 (08:30→21:00)
[2021-01-05] MEDS ORDERED: SODIUM CHLORIDE 0.9% 250ML 250 ML ONE (15:19)
[2021-01-05] MEDS: ATORVASTATIN 40 MG TAB PO SCH (21:00)
[2021-01-06] VITALS (7 sets, daily range): BP systolic 116–146; BP diastolic 64–75
[2021-01-06] MEDS: MEROPENEM 1 GM in SODIUM CHLORIDE 0.9% 100 ML IV SCH ×3 (05:12→22:00)
[2021-01-06] MEDS: INSULIN REGULAR, HUMAN 100 UNIT/1 ML SQ SCH ×4 (07:30→22:00)
[2021-01-06] MEDS: GLIMEPIRIDE 2 MG TAB PO SCH ×2 (08:00→15:48)
[2021-01-06] MEDS: COLLAGENASE 5 GM TUBE TP SCH (08:28)
[2021-01-06] MEDS: PANTOPRAZOLE SOD 40 MG TABEC PO SCH (09:30)
[2021-01-06] MEDS: METFORMIN HCL 500 MG TAB PO SCH ×2 (09:30→17:00)
[2021-01-06] MEDS: AMLODIPINE BESYLATE 10 MG TAB PO SCH (09:31)
[2021-01-06] MEDS: CARVEDILOL 12.5 MG TAB PO SCH ×2 (09:31→17:22)
[2021-01-06] MEDS: LOSARTAN POTASSIUM 100 MG TAB PO SCH (09:31)
[2021-01-06] MEDS: ONDANSETRON HCL INJ 2MG/ML 2ML 2 MG/ML VIAL IV PRN ×3 (09:31→22:00)
[2021-01-06] MEDS: ASPIRIN 81 MG CHEW TAB PO SCH (09:31)
[2021-01-06] MEDS: HYDROMORPHONE 1MG/1ML INJ IV PRN ×3 (09:32→22:00)
[2021-01-06] MEDS: ATORVASTATIN 40 MG TAB PO SCH (22:00)
[2021-01-07] VITALS (8 sets, daily range): BP systolic 106–160; BP diastolic 64–74
[2021-01-07 06:19] LABS: HEMATOCRIT 32.9 % (34.2-44.1); HEMOGLOBIN 10.4 g/dL (12.0-16.0); MEAN CORPUSCULAR HEMOGLOBIN 28.7 pg (28-32); MEAN CORPUSCULAR HGB CONC 31.6 g/dL (31-35); MEAN CORPUSCULAR VOLUME 90.9 fL (81-99); PLATELET COUNT 575 x10e3/uL (140-360); RED BLOOD COUNT 3.62 x10e6/uL (3.6-5.1); RED CELL DISTRIBUTION WIDTH 12.6 % (11.7-14.4)
[2021-01-07] MEDS: MEROPENEM 1 GM in SODIUM CHLORIDE 0.9% 100 ML IV SCH ×3 (06:30→21:23)
[2021-01-07 06:43] LABS: ANION GAP 15.1 mmol/L (8-16); CALCIUM 9.6 mg/dL (8.4-10.2); CREATININE, SERUM 0.91 mg/dL (0.57-1.11); POTASSIUM 4.1 mmol/L (3.5-5.1)
[2021-01-07] MEDS ORDERED: BETAMETHASONE DISODIUM PHOS 6 MG/ML VIAL ONE (06:46)
[2021-01-07] MEDS ORDERED: LIDOCAINE HCL 1% LOCAL INJ 20 ML VIAL ONE (06:46)
[2021-01-07] MEDS ORDERED: MUPIROCIN 2% OINT 22 GM TUBE ONE (06:46)
[2021-01-07] MEDS ORDERED: BUPIVACAINE HCL 0.5% INJ 30 ML VIAL INJ ONE (06:46)
[2021-01-07] MEDS ORDERED: Vancomycin IV 1 GM VIAL ONE (07:19)
[2021-01-07] MEDS: INSULIN REGULAR, HUMAN 100 UNIT/1 ML SQ SCH ×4 (07:30→20:46)
[2021-01-07 08:31] LABS: EOSINOPHILS % (MANUAL) 1 % (0-7); LYMPHOCYTES % (MANUAL) 33 % (19-48); MONOCYTES % (MANUAL) 10 % (3.4-9.0); NEUTROPHILS % (MANUAL) 56 % (40-74); PLATELET ESTIMATE SLIGHTLY INCREASED
[2021-01-07 08:32] LABS: PLATELET MORPHOLOGY COMMENT FEW GIANT; RBC MORPHOLOGY COMMENT NORMAL
[2021-01-07] MEDS: LOSARTAN POTASSIUM 100 MG TAB PO SCH (09:00)
[2021-01-07] MEDS: GLIMEPIRIDE 2 MG TAB PO SCH ×2 (09:00→16:14)
[2021-01-07] MEDS: CARVEDILOL 12.5 MG TAB PO SCH ×2 (09:00→16:14)
[2021-01-07] MEDS: METFORMIN HCL 500 MG TAB PO SCH ×2 (09:00→16:14)
[2021-01-07] MEDS: PANTOPRAZOLE SOD 40 MG TABEC PO SCH (09:00)
[2021-01-07] MEDS: AMLODIPINE BESYLATE 10 MG TAB PO SCH (09:00)
[2021-01-07] MEDS: ASPIRIN 81 MG CHEW TAB PO SCH (09:00)
[2021-01-07] MEDS: HYDROMORPHONE 1MG/1ML INJ IV PRN ×2 (14:30→23:49)
[2021-01-07] MEDS: ATORVASTATIN 40 MG TAB PO SCH (20:44)
[2021-01-07] MEDS: ONDANSETRON HCL INJ 2MG/ML 2ML 2 MG/ML VIAL IV PRN (23:49)
[2021-01-08] VITALS (8 sets, daily range): BP systolic 114–142; BP diastolic 60–74
[2021-01-08] MEDS: MEROPENEM 1 GM in SODIUM CHLORIDE 0.9% 100 ML IV SCH ×3 (05:48→20:20)
[2021-01-08] MEDS: INSULIN REGULAR, HUMAN 100 UNIT/1 ML SQ SCH ×4 (07:30→20:22)
[2021-01-08] MEDS: METFORMIN HCL 500 MG TAB PO SCH ×2 (08:00→17:00)
[2021-01-08] MEDS: GLIMEPIRIDE 2 MG TAB PO SCH (08:00)
[2021-01-08] MEDS: CARVEDILOL 12.5 MG TAB PO SCH ×2 (09:00→17:00)
[2021-01-08] MEDS: LOSARTAN POTASSIUM 100 MG TAB PO SCH (09:00)
[2021-01-08] MEDS: PANTOPRAZOLE SOD 40 MG TABEC PO SCH (09:00)
[2021-01-08] MEDS: ASPIRIN 81 MG CHEW TAB PO SCH (09:00)
[2021-01-08] MEDS: AMLODIPINE BESYLATE 10 MG TAB PO SCH (09:00)
[2021-01-08] MEDS: HYDROMORPHONE 1MG/1ML INJ IV PRN (09:31)
[2021-01-08] MEDS: ONDANSETRON HCL INJ 2MG/ML 2ML 2 MG/ML VIAL IV PRN (09:32)
[2021-01-08] MEDS: ATORVASTATIN 40 MG TAB PO SCH (20:19)
[2021-01-08] MEDS: HYDROCODONE/APAP 7.5MG-325MG 1 EA TAB PO PRN (22:50)
[2021-01-09] VITALS (7 sets, daily range): BP systolic 110–138; BP diastolic 62–70
[2021-01-09] MEDS: MEROPENEM 1 GM in SODIUM CHLORIDE 0.9% 100 ML IV SCH ×3 (05:47→22:23)
[2021-01-09] MEDS: HYDROCODONE/APAP 7.5MG-325MG 1 EA TAB PO PRN ×3 (05:47→20:26)
[2021-01-09 06:20] LABS: BASOPHILS # (AUTO) 0.1 (0.0-0.1); BASOPHILS % 0.6 % (0.0-1.0); EOSINOPHILS # (AUTO) 0.3 (0.0-0.4); EOSINOPHILS % 2.2 % (0.0-6.0); HEMATOCRIT 32.4 % (34.2-44.1); HEMOGLOBIN 10.5 g/dL (12.0-16.0); LYMPHOCYTES # (AUTO) 3.9 (1.0-3.2); MEAN CORPUSCULAR HEMOGLOBIN 28.7 pg (28-32); MEAN CORPUSCULAR HGB CONC 32.4 g/dL (31-35); MEAN CORPUSCULAR VOLUME 88.5 fL (81-99); MONOCYTES % 7.9 % (4.4-11.3); NEUTROPHILS # (AUTO) 7.2 (2.1-6.9); NEUTROPHILS % 57.7 % (38.7-80.0); PLATELET COUNT 533 x10e3/uL (140-360); RED BLOOD COUNT 3.66 x10e6/uL (3.6-5.1); RED CELL DISTRIBUTION WIDTH 12.4 % (11.7-14.4)
[2021-01-09 06:41] LABS: ALBUMIN 2.5 g/dL (3.5-5.0); ALBUMIN/GLOBULIN RATIO 0.4 (0.8-2.0); ANION GAP 16.2 mmol/L (8-16); CALCIUM 9.8 mg/dL (8.4-10.2); CREATININE, SERUM 0.82 mg/dL (0.57-1.11); POTASSIUM 4.2 mmol/L (3.5-5.1)
[2021-01-09] MEDS: INSULIN REGULAR, HUMAN 100 UNIT/1 ML SQ SCH ×4 (07:30→20:24)
[2021-01-09] MEDS: METFORMIN HCL 500 MG TAB PO SCH ×2 (08:00→17:00)
[2021-01-09] MEDS: PANTOPRAZOLE SOD 40 MG TABEC PO SCH (09:00)
[2021-01-09] MEDS: LOSARTAN POTASSIUM 100 MG TAB PO SCH (09:00)
[2021-01-09] MEDS: ASPIRIN 81 MG CHEW TAB PO SCH (09:00)
[2021-01-09] MEDS: CARVEDILOL 12.5 MG TAB PO SCH ×2 (09:00→17:00)
[2021-01-09] MEDS: AMLODIPINE BESYLATE 10 MG TAB PO SCH (09:00)
[2021-01-09] MEDS: ONDANSETRON HCL INJ 2MG/ML 2ML 2 MG/ML VIAL IV PRN (15:47)
[2021-01-09] MEDS: ATORVASTATIN 40 MG TAB PO SCH (20:25)
[2021-01-10 00:07] VITALS: BP 115/72
[2021-01-10 05:41] VITALS: BP 113/67
[2021-01-10 05:54] LABS: BASOPHILS # (AUTO) 0.1 (0.0-0.1); BASOPHILS % 0.6 % (0.0-1.0); EOSINOPHILS # (AUTO) 0.3 (0.0-0.4); EOSINOPHILS % 2.3 % (0.0-6.0); HEMATOCRIT 31.1 % (34.2-44.1); LYMPHOCYTES # (AUTO) 3.6 (1.0-3.2); LYMPHOCYTES % 32.9 % (18.0-39.1); MEAN CORPUSCULAR HEMOGLOBIN 28.4 pg (28-32); MEAN CORPUSCULAR HGB CONC 32.2 g/dL (31-35); MEAN CORPUSCULAR VOLUME 88.4 fL (81-99); MONOCYTES # (AUTO) 0.9 (0.2-0.8); NEUTROPHILS % 55.6 % (38.7-80.0); PLATELET COUNT 524 x10e3/uL (140-360); RED BLOOD COUNT 3.52 x10e6/uL (3.6-5.1); RED CELL DISTRIBUTION WIDTH 12.5 % (11.7-14.4)
[2021-01-10] MEDS: MEROPENEM 1 GM in SODIUM CHLORIDE 0.9% 100 ML IV SCH ×2 (06:09→14:22)
[2021-01-10 06:20] LABS: ANION GAP 16.1 mmol/L (8-16); CALCIUM 10.1 mg/dL (8.4-10.2); CREATININE, SERUM 0.78 mg/dL (0.57-1.11); POTASSIUM 4.1 mmol/L (3.5-5.1)
[2021-01-10 07:56] VITALS: BP 111/76
[2021-01-10] MEDS: CARVEDILOL 12.5 MG TAB PO SCH (08:00)
[2021-01-10] MEDS: METFORMIN HCL 500 MG TAB PO SCH (08:00)
[2021-01-10] MEDS: ASPIRIN 81 MG CHEW TAB PO SCH (08:00)
[2021-01-10] MEDS: LOSARTAN POTASSIUM 100 MG TAB PO SCH (08:01)
[2021-01-10] MEDS: PANTOPRAZOLE SOD 40 MG TABEC PO SCH (08:01)
[2021-01-10] MEDS: AMLODIPINE BESYLATE 10 MG TAB PO SCH (08:01)
[2021-01-10] MEDS: INSULIN REGULAR, HUMAN 100 UNIT/1 ML SQ SCH ×3 (08:02→14:13)
[2021-01-10 11:14] VITALS: BP 105/62
[2021-01-10 12:52] VITALS: BP 105/62
[2021-01-10 14:58] VITALS: BP 119/66
== END 2021-01-10 14:30 | disposition home health service (06) | DRG 854 ==
LOC: ER 17:35 → ERHOLD 20:26 → MED/SURG2 12-24 06:52
PROVIDERS: ADMIT Internal Medicine; ATTEND Internal Medicine
PROC: 0JBQ0ZZ Excision of Right Foot Subcutaneous Tissue and Fascia, Open Approach (ICD-10-PCS; 2020-12-28)
PROC: 0QBN0ZZ Excision of Right Metatarsal, Open Approach (ICD-10-PCS; principal; 2020-12-28 07:00)
PROC: 30243N1 Transfusion of Nonautologous Red Blood Cells into Central Vein, Percutaneous Approach (ICD-10-PCS; 2020-12-30)
PROC: 0JBQ0ZZ Excision of Right Foot Subcutaneous Tissue and Fascia, Open Approach (ICD-10-PCS; 2021-01-05)
PROC: 0Y6R0Z0 Detachment at Right 2nd Toe, Complete, Open Approach (ICD-10-PCS; 2021-01-07)
PROC: 0KBV0ZZ Excision of Right Foot Muscle, Open Approach (ICD-10-PCS; 2021-01-07)
PROC: 0QBN0ZZ Excision of Right Metatarsal, Open Approach (ICD-10-PCS; 2021-01-07)
PROC: 02HV33Z Insertion of Infusion Device into Superior Vena Cava, Percutaneous Approach (ICD-10-PCS; 2021-01-08)
DX: A41.52 Sepsis due to Pseudomonas (principal); E11.52 Type 2 diabetes mellitus with diabetic peripheral angiopathy with gangrene; I70.269 Atherosclerosis of native arteries of extremities with gangrene, unspecified extremity; M86.8X7 Other osteomyelitis, ankle and foot; Z16.24 Resistance to multiple antibiotics; Z16.12 Extended spectrum beta lactamase (ESBL) resistance; L03.115 Cellulitis of right lower limb; E11.69 Type 2 diabetes mellitus with other specified complication; A41.51 Sepsis due to Escherichia coli [E. coli]; A41.81 Sepsis due to Enterococcus; L98.494 Non-pressure chronic ulcer of skin of other sites with necrosis of bone; E66.9 Obesity, unspecified; Z68.26 Body mass index [BMI] 26.0-26.9, adult; B96.20 Unspecified Escherichia coli [E. coli] as the cause of diseases classified elsewhere; B96.5 Pseudomonas (aeruginosa) (mallei) (pseudomallei) as the cause of diseases classified elsewhere; D63.8 Anemia in other chronic diseases classified elsewhere; R19.7 Diarrhea, unspecified; E11.65 Type 2 diabetes mellitus with hyperglycemia; Z20.822 Contact with and (suspected) exposure to COVID-19; I11.9 Hypertensive heart disease without heart failure; E11.649 Type 2 diabetes mellitus with hypoglycemia without coma; E11.628 Type 2 diabetes mellitus with other skin complications
CPT/HCPCS: 36415; 36569; 71045; 80048; 80053; 82270; 82948; 83605; 85007; 85025; 85027; 85610; 85651; 85730; 86850; 86900; 86920; 87040; 87071; 87075; 87186; 87205; 87493; 88304; 88305; 88311; 93925; 96360; 96361; 96372; 97139; 99284; J0360; J0692; J0696; J0720; J1100; J1170; J1817; J1885; J2001; J2185; J2270; J2405; J2543; J3370; J7030; J7050; J7799; P9016; U0002

== ENCOUNTER 2021-02-03 11:41 | Inpatient (IN) | payer OTHER ==
[~2021-02-03] VITALS: Ht 154.9 cm; Wt 63.5 kg
[2021-02-03] MEDS ORDERED: ONDANSETRON HCL INJ 2MG/ML 2ML 2 MG/ML VIAL IV STA ×2 (12:26→15:07)
[2021-02-03] MEDS ORDERED: KETOROLAC TROMETHAMINE 30 MG/ML VIAL IV STA (12:26)
[2021-02-03] MEDS ORDERED: SODIUM CHLORIDE 0.9% 1000ML 1,000 ML IV STA (12:26)
[2021-02-03 13:02] LABS: BASOPHILS % 0.5 % (0.0-1.0); EOSINOPHILS % 0.5 % (0.0-6.0); HEMATOCRIT 35.8 % (34.2-44.1); LYMPHOCYTES % 52.6 % (18.0-39.1); MEAN CORPUSCULAR HEMOGLOBIN 28.7 pg (28-32); MEAN CORPUSCULAR HGB CONC 33.5 g/dL (31-35); MEAN CORPUSCULAR VOLUME 85.6 fL (81-99); MONOCYTES # (AUTO) 0.6 (0.2-0.8); MONOCYTES % 29.4 % (4.4-11.3); NEUTROPHILS # (AUTO) 0.3 (2.1-6.9); NEUTROPHILS % 16.5 % (38.7-80.0); PLATELET COUNT 171 x10e3/uL (140-360); RED BLOOD COUNT 4.18 x10e6/uL (3.6-5.1); RED CELL DISTRIBUTION WIDTH 14.8 % (11.7-14.4)
[2021-02-03 13:10] LABS: CLARITY,URINE CLEAR (CLEAR); COLOR,URINE YELLOW (YELLOW); KETONES,URINE NEGATIVE (NEGATIVE); LEUKOCYTE ESTERASE ,URINE NEGATIVE (NEGATIVE); NITRITE,URINE NEGATIVE (NEGATIVE); PROTEIN,URINE DIPSTICK 2+ (NEGATIVE); URINE UROBILINOGEN 0.2 mg/dL (0.2 - 1)
[2021-02-03 13:12] LABS: INR 0.97; PROTHROMBIN TIME 13.3 seconds (11.9-14.5)
[2021-02-03 13:13] LABS: PARTIAL THROMBOPLASTIN TIME 31.5 seconds (23.8-35.5)
[2021-02-03 13:18] LABS: BACTERIA,URINE FEW /HPF; WBC,URINE (MAN) 0-5 /HPF (0-5)
[2021-02-03 13:19] LABS: AMORPHOUS SEDIMENT,URINE FEW (FEW); EPITHELIAL CELLS,URINE RARE /LPF
[2021-02-03 13:20] LABS: ALBUMIN 3.3 g/dL (3.5-5.0); ALBUMIN/GLOBULIN RATIO 0.6 (0.8-2.0); ANION GAP 20.1 mmol/L (8-16); CALCIUM 10.3 mg/dL (8.4-10.2); CREATININE, SERUM 2.35 mg/dL (0.57-1.11); POTASSIUM 3.1 mmol/L (3.5-5.1)
[2021-02-03 13:25] LABS: BASOPHILS % 0.5 % (0.0-1.0); EOSINOPHILS % 0.5 % (0.0-6.0); HEMATOCRIT 32.9 % (34.2-44.1); HEMOGLOBIN 11.1 g/dL (12.0-16.0); LYMPHOCYTES % 50.8 % (18.0-39.1); MEAN CORPUSCULAR HEMOGLOBIN 28.9 pg (28-32); MEAN CORPUSCULAR HGB CONC 33.7 g/dL (31-35); MEAN CORPUSCULAR VOLUME 85.7 fL (81-99); MONOCYTES # (AUTO) 0.6 (0.2-0.8); MONOCYTES % 31.5 % (4.4-11.3); NEUTROPHILS # (AUTO) 0.3 (2.1-6.9); NEUTROPHILS % 16.2 % (38.7-80.0); PLATELET COUNT 135 x10e3/uL (140-360); RED BLOOD COUNT 3.84 x10e6/uL (3.6-5.1); RED CELL DISTRIBUTION WIDTH 14.8 % (11.7-14.4)
[2021-02-03 13:27] LABS: CREATINE KINASE MB 2.4 ng/mL (0-5.0)
[2021-02-03] MEDS ORDERED: Morphine 4mg Syringe 4 MG/ML INJ IV ONE (15:30)
[2021-02-03] MEDS ORDERED: PLAVIX75 MG PO (15:35)
[2021-02-03] MEDS ORDERED: JANUVIA100 MG PO (15:35)
[2021-02-03] MEDS ORDERED: KCL 20MEQ/.9 SOD CHL 1,000 ML IV ONE (16:45)
[2021-02-03] MEDS: SODIUM CHLORIDE 0.9% 1000ML 1,000 ML IV SCH (16:49)
[2021-02-03] MEDS ORDERED: POTASSIUM CHLORIDE 20 MEQ TAB CR PO ONE (17:00)
[2021-02-03 18:20] VITALS: BP 135/79
[2021-02-03 18:35] VITALS: BP 135/79
[2021-02-03 20:00] VITALS: BP 134/97
[2021-02-03 20:42] LABS: HEMATOCRIT 31.3 % (34.2-44.1); HEMOGLOBIN 10.4 g/dL (12.0-16.0); MEAN CORPUSCULAR HEMOGLOBIN 28.6 pg (28-32); MEAN CORPUSCULAR HGB CONC 33.2 g/dL (31-35); PLATELET COUNT 124 x10e3/uL (140-360); RED BLOOD COUNT 3.64 x10e6/uL (3.6-5.1); RED CELL DISTRIBUTION WIDTH 14.8 % (11.7-14.4)
[2021-02-03 20:57] LABS: ANISOCYTOSIS SLIGHT; LYMPHOCYTES % (MANUAL) 38 % (19-48); METAMYELOCYTES % (MANUAL) 1 % (0-0); MONOCYTES % (MANUAL) 30 % (3.4-9.0); NEUTROPHILS % (MANUAL) 14 % (40-74); PLATELET MORPHOLOGY COMMENT NORMAL; RBC MORPHOLOGY COMMENT NORMAL
[2021-02-03 20:58] LABS: PLATELET ESTIMATE SLIGHTLY DECREASED
[2021-02-03 21:30] VITALS: BP 135/79
[2021-02-03] MEDS: PIPERACILLIN/TAZOBACTAM 2.25 GM in SODIUM CHLORIDE 0.9% 50ML 50 ML IV SCH (22:01)
[2021-02-03] MEDS: LINEZOLID 600 MG/D5W 300ML 300 ML IV SCH (22:01)
[2021-02-03] MEDS: ONDANSETRON HCL INJ 2MG/ML 2ML 2 MG/ML VIAL IV PRN (23:11)
[2021-02-03] MEDS: Morphine 4mg Syringe 4 MG/ML INJ IV PRN (23:11)
[2021-02-04] VITALS (10 sets, daily range): BP systolic 99–173; BP diastolic 62–89
[2021-02-04] MEDS: SODIUM CHLORIDE 0.9% 1000ML 1,000 ML IV SCH ×3 (01:30→16:35)
[2021-02-04] MEDS: PIPERACILLIN/TAZOBACTAM 2.25 GM in SODIUM CHLORIDE 0.9% 50ML 50 ML IV SCH ×4 (04:17→21:19)
[2021-02-04] MEDS: ONDANSETRON HCL INJ 2MG/ML 2ML 2 MG/ML VIAL IV PRN (04:55)
[2021-02-04] MEDS: Morphine 4mg Syringe 4 MG/ML INJ IV PRN ×3 (04:55→18:41)
[2021-02-04 05:03] LABS: BASOPHILS % 0.8 % (0.0-1.0); EOSINOPHILS # (AUTO) 0.1 (0.0-0.4); EOSINOPHILS % 4.9 % (0.0-6.0); HEMATOCRIT 31.3 % (34.2-44.1); HEMOGLOBIN 10.5 g/dL (12.0-16.0); LYMPHOCYTES # (AUTO) 0.7 (1.0-3.2); LYMPHOCYTES % 54.5 % (18.0-39.1); MEAN CORPUSCULAR HGB CONC 33.5 g/dL (31-35); MEAN CORPUSCULAR VOLUME 86.5 fL (81-99); MONOCYTES # (AUTO) 0.1 (0.2-0.8); MONOCYTES % 8.1 % (4.4-11.3); NEUTROPHILS # (AUTO) 0.4 (2.1-6.9); NEUTROPHILS % 31.7 % (38.7-80.0); PLATELET COUNT 145 x10e3/uL (140-360); RED BLOOD COUNT 3.62 x10e6/uL (3.6-5.1); RED CELL DISTRIBUTION WIDTH 14.9 % (11.7-14.4)
[2021-02-04 05:31] LABS: ANION GAP 16.2 mmol/L (8-16); CALCIUM 8.7 mg/dL (8.4-10.2); CREATININE, SERUM 2.05 mg/dL (0.57-1.11); POTASSIUM 3.2 mmol/L (3.5-5.1)
[2021-02-04 07:09] LABS: ALBUMIN 2.7 g/dL (3.5-5.0); BILIRUBIN,DIRECT 0.3 mg/dL (0.0-0.5)
[2021-02-04] MEDS: LINEZOLID 600 MG/D5W 300ML 300 ML IV SCH ×2 (08:23→19:30)
[2021-02-04 08:52] LABS: BAND NEUTROPHILS % (MANUAL) 4 %; EOSINOPHILS % (MANUAL) 4 % (0-7); LYMPHOCYTES % (MANUAL) 54 % (19-48); MONOCYTES % (MANUAL) 11 % (3.4-9.0); NEUTROPHILS % (MANUAL) 27 % (40-74); PLATELET ESTIMATE SLIGHTLY DECREASED
[2021-02-04 08:53] LABS: PLATELET MORPHOLOGY COMMENT NORMAL; RBC MORPHOLOGY COMMENT NORMAL
[2021-02-04] MEDS: FILGRASTIM 300 MCG/ML VIAL SC SCH (14:45)
[2021-02-04] MEDS ORDERED: POTASSIUM CHLORIDE 20 MEQ TAB CR PO ONE (16:00)
[2021-02-04] MEDS: ACETAMINOPHEN 325 MG TAB PO PRN (19:30)
[2021-02-05] VITALS (8 sets, daily range): BP systolic 111–156; BP diastolic 58–99
[2021-02-05] MEDS: SODIUM CHLORIDE 0.9% 1000ML 1,000 ML IV SCH (03:32)
[2021-02-05] MEDS: PIPERACILLIN/TAZOBACTAM 2.25 GM in SODIUM CHLORIDE 0.9% 50ML 50 ML IV SCH ×4 (03:32→20:29)
[2021-02-05] MEDS: ACETAMINOPHEN 325 MG TAB PO PRN (03:33)
[2021-02-05] MEDS: ONDANSETRON HCL INJ 2MG/ML 2ML 2 MG/ML VIAL IV PRN ×2 (03:33→23:47)
[2021-02-05] MEDS: Morphine 4mg Syringe 4 MG/ML INJ IV PRN ×3 (03:33→23:47)
[2021-02-05 05:25] LABS: HEMATOCRIT 28.3 % (34.2-44.1); HEMOGLOBIN 9.3 g/dL (12.0-16.0); MEAN CORPUSCULAR HEMOGLOBIN 28.8 pg (28-32); MEAN CORPUSCULAR HGB CONC 32.9 g/dL (31-35); MEAN CORPUSCULAR VOLUME 87.6 fL (81-99); PLATELET COUNT 119 x10e3/uL (140-360); RED BLOOD COUNT 3.23 x10e6/uL (3.6-5.1); RED CELL DISTRIBUTION WIDTH 15.8 % (11.7-14.4)
[2021-02-05 05:43] LABS: MAGNESIUM 1.4 MG/DL (1.3-2.1); PHOSPHORUS 2.4 MG/DL (2.3-4.7)
[2021-02-05 05:49] LABS: ALBUMIN 2.4 g/dL (3.5-5.0); ALBUMIN/GLOBULIN RATIO 0.6 (0.8-2.0); ANION GAP 16.4 mmol/L (8-16); CALCIUM 8.8 mg/dL (8.4-10.2); POTASSIUM 3.4 mmol/L (3.5-5.1)
[2021-02-05] MEDS: LINEZOLID 600 MG/D5W 300ML 300 ML IV SCH ×2 (07:50→20:26)
[2021-02-05] MEDS: FILGRASTIM 300 MCG/ML VIAL SC SCH (08:18)
[2021-02-05] MEDS ORDERED: POTASSIUM CHLORIDE 10MEQ EA PO ONE (09:30)
[2021-02-05] MEDS ORDERED: MAGNESIUM SULFATE 2GM/50ML 50 ML IV ONE (10:00)
[2021-02-05] MEDS ORDERED: PANTOPRAZOLE SOD 40 MG TABEC PO SCH (10:15)
[2021-02-05 21:11] LABS: % IRON SATURATION 24 % (15-50); IRON 43 ug/dL (50-170); TOTAL IRON BINDING CAPACITY 181 ug/dL (261-478); TRANSFERRIN 129 mg/dL (180-382)
[2021-02-06] VITALS (8 sets, daily range): BP systolic 118–155; BP diastolic 64–87
[2021-02-06] MEDS: PIPERACILLIN/TAZOBACTAM 2.25 GM in SODIUM CHLORIDE 0.9% 50ML 50 ML IV SCH ×4 (05:17→20:23)
[2021-02-06 06:55] LABS: BASOPHILS % 0.2 % (0.0-1.0); EOSINOPHILS # (AUTO) 0.2 (0.0-0.4); EOSINOPHILS % 1.5 % (0.0-6.0); HEMATOCRIT 31.7 % (34.2-44.1); HEMOGLOBIN 10.6 g/dL (12.0-16.0); LYMPHOCYTES # (AUTO) 1.3 (1.0-3.2); LYMPHOCYTES % 9.8 % (18.0-39.1); MEAN CORPUSCULAR HEMOGLOBIN 28.8 pg (28-32); MEAN CORPUSCULAR HGB CONC 33.4 g/dL (31-35); MEAN CORPUSCULAR VOLUME 86.1 fL (81-99); MONOCYTES # (AUTO) 0.4 (0.2-0.8); MONOCYTES % 2.7 % (4.4-11.3); NEUTROPHILS # (AUTO) 10.1 (2.1-6.9); NEUTROPHILS % 77.6 % (38.7-80.0); PLATELET COUNT 167 x10e3/uL (140-360); RED BLOOD COUNT 3.68 x10e6/uL (3.6-5.1); RED CELL DISTRIBUTION WIDTH 16.1 % (11.7-14.4)
[2021-02-06 07:20] LABS: ALBUMIN 2.7 g/dL (3.5-5.0); ALBUMIN/GLOBULIN RATIO 0.6 (0.8-2.0); ANION GAP 16.5 mmol/L (8-16); CALCIUM 9.3 mg/dL (8.4-10.2); CREATININE, SERUM 1.88 mg/dL (0.57-1.11); POTASSIUM 3.5 mmol/L (3.5-5.1)
[2021-02-06] MEDS ORDERED: SODIUM CHLORIDE 0.9% 250ML 250 ML ONE (07:34)
[2021-02-06] MEDS ORDERED: POTASSIUM CHLORIDE 10MEQ EA PO ONE (10:00)
[2021-02-06] MEDS: ONDANSETRON HCL INJ 2MG/ML 2ML 2 MG/ML VIAL IV PRN ×2 (10:21→17:45)
[2021-02-06] MEDS: Morphine 4mg Syringe 4 MG/ML INJ IV PRN ×2 (10:25→20:35)
[2021-02-06 11:14] LABS: BAND NEUTROPHILS % (MANUAL) 1 %; HYPOCHROMASIA SLIGHT; LYMPHOCYTES % (MANUAL) 5 % (19-48); MONOCYTES % (MANUAL) 5 % (3.4-9.0); NEUTROPHILS % (MANUAL) 89 % (40-74); PLATELET ESTIMATE ADEQUATE; PLATELET MORPHOLOGY COMMENT NORMAL; RBC MORPHOLOGY COMMENT NORMAL
[2021-02-06] MEDS: LINEZOLID 600 MG/D5W 300ML 300 ML IV SCH ×2 (11:30→20:03)
[2021-02-06] MEDS: SODIUM CHLORIDE 0.9% 1000ML 1,000 ML IV SCH ×2 (11:54→20:13)
[2021-02-06] MEDS ORDERED: DEXTROSE 50% SYRINGE 50 ML IV PRN (16:45)
[2021-02-06] MEDS: INSULIN LISPRO 100 UNIT/1 ML 3ML VIAL SQ SCH (17:46)
[2021-02-06] MEDS: COLLAGENASE 5 GM TUBE TOP SCH (20:24)
[2021-02-06] MEDS ORDERED: INSULIN LISPRO 100 UNIT/1 ML 3ML VIAL SQ SCH (21:00)
[2021-02-07] VITALS (9 sets, daily range): BP systolic 106–175; BP diastolic 66–97
[2021-02-07] MEDS: Morphine 4mg Syringe 4 MG/ML INJ IV PRN ×5 (01:09→22:02)
[2021-02-07] MEDS: ONDANSETRON HCL INJ 2MG/ML 2ML 2 MG/ML VIAL IV PRN ×4 (01:10→21:52)
[2021-02-07] MEDS: PIPERACILLIN/TAZOBACTAM 2.25 GM in SODIUM CHLORIDE 0.9% 50ML 50 ML IV SCH ×4 (03:05→21:31)
[2021-02-07 05:32] LABS: BASOPHILS % 0.2 % (0.0-1.0); EOSINOPHILS # (AUTO) 0.4 (0.0-0.4); EOSINOPHILS % 1.8 % (0.0-6.0); HEMATOCRIT 31.7 % (34.2-44.1); HEMOGLOBIN 10.3 g/dL (12.0-16.0); LYMPHOCYTES # (AUTO) 1.8 (1.0-3.2); LYMPHOCYTES % 8.2 % (18.0-39.1); MEAN CORPUSCULAR HEMOGLOBIN 29.2 pg (28-32); MEAN CORPUSCULAR HGB CONC 32.5 g/dL (31-35); MEAN CORPUSCULAR VOLUME 89.8 fL (81-99); MONOCYTES # (AUTO) 1.1 (0.2-0.8); MONOCYTES % 4.9 % (4.4-11.3); NEUTROPHILS # (AUTO) 18.2 (2.1-6.9); NEUTROPHILS % 83.5 % (38.7-80.0); PLATELET COUNT 207 x10e3/uL (140-360); RED BLOOD COUNT 3.53 x10e6/uL (3.6-5.1)
[2021-02-07] MEDS: SODIUM CHLORIDE 0.9% 1000ML 1,000 ML IV SCH ×2 (05:35→16:05)
[2021-02-07 06:09] LABS: ALBUMIN 2.5 g/dL (3.5-5.0); ALBUMIN/GLOBULIN RATIO 0.5 (0.8-2.0); ANION GAP 17.2 mmol/L (8-16); CREATININE, SERUM 1.36 mg/dL (0.57-1.11); POTASSIUM 3.2 mmol/L (3.5-5.1)
[2021-02-07] MEDS ORDERED: SODIUM CHLORIDE 0.9% 50ML 50 ML ONE (07:38)
[2021-02-07] MEDS: LINEZOLID 600 MG/D5W 300ML 300 ML IV SCH ×2 (08:39→22:02)
[2021-02-07] MEDS: COLLAGENASE 5 GM TUBE TOP SCH ×2 (08:40→16:05)
[2021-02-07] MEDS: INSULIN LISPRO 100 UNIT/1 ML 3ML VIAL SQ SCH ×4 (08:50→21:31)
[2021-02-07 10:33] LABS: BAND NEUTROPHILS % (MANUAL) 6 %; EOSINOPHILS % (MANUAL) 2 % (0-7); LYMPHOCYTES % (MANUAL) 6 % (19-48); MONOCYTES % (MANUAL) 2 % (3.4-9.0); NEUTROPHILS % (MANUAL) 84 % (40-74)
[2021-02-07 10:34] LABS: PLATELET ESTIMATE ADEQUATE; PLATELET MORPHOLOGY COMMENT NORMAL; RBC MORPHOLOGY COMMENT NORMAL
[2021-02-07] MEDS: IRON SUCROSE 100 MG in SODIUM CHLORIDE 0.9% 100 ML 100 ML IV SCH (12:05)
[2021-02-07] MEDS ORDERED: POTASSIUM CHLORIDE 20 MEQ TAB CR PO ONE (17:30)
[2021-02-08] VITALS (10 sets, daily range): BP systolic 144–199; BP diastolic 76–94
[2021-02-08] MEDS: ONDANSETRON HCL INJ 2MG/ML 2ML 2 MG/ML VIAL IV PRN ×2 (02:03→09:16)
[2021-02-08] MEDS: Morphine 4mg Syringe 4 MG/ML INJ IV PRN ×2 (02:03→09:16)
[2021-02-08] MEDS: PIPERACILLIN/TAZOBACTAM 2.25 GM in SODIUM CHLORIDE 0.9% 50ML 50 ML IV SCH ×4 (02:57→21:45)
[2021-02-08] MEDS: SODIUM CHLORIDE 0.9% 1000ML 1,000 ML IV SCH ×2 (03:12→13:00)
[2021-02-08] MEDS: CLONIDINE HCL 0.1 MG TAB PO PRN (04:28)
[2021-02-08 06:51] LABS: HEMATOCRIT 35.5 % (34.2-44.1); HEMOGLOBIN 11.3 g/dL (12.0-16.0); MEAN CORPUSCULAR HEMOGLOBIN 28.7 pg (28-32); MEAN CORPUSCULAR HGB CONC 31.8 g/dL (31-35); MEAN CORPUSCULAR VOLUME 90.1 fL (81-99); PLATELET COUNT 224 x10e3/uL (140-360); RED BLOOD COUNT 3.94 x10e6/uL (3.6-5.1); RED CELL DISTRIBUTION WIDTH 17.3 % (11.7-14.4)
[2021-02-08 06:52] LABS: ALBUMIN 2.6 g/dL (3.5-5.0); ALBUMIN/GLOBULIN RATIO 0.5 (0.8-2.0); ANION GAP 18.3 mmol/L (8-16); CALCIUM 8.7 mg/dL (8.4-10.2); CREATININE, SERUM 1.22 mg/dL (0.57-1.11); POTASSIUM 3.3 mmol/L (3.5-5.1)
[2021-02-08] MEDS: INSULIN LISPRO 100 UNIT/1 ML 3ML VIAL SQ SCH ×4 (07:30→21:11)
[2021-02-08 07:49] LABS: BAND NEUTROPHILS % (MANUAL) 1 %; EOSINOPHILS % (MANUAL) 1 % (0-7); LYMPHOCYTES % (MANUAL) 16 % (19-48); MONOCYTES % (MANUAL) 8 % (3.4-9.0); MYELOCYTES % (MANUAL) 3 % (0-0); NEUTROPHILS % (MANUAL) 71 % (40-74)
[2021-02-08 07:50] LABS: PLATELET ESTIMATE ADEQUATE; PLATELET MORPHOLOGY COMMENT NORMAL; RBC MORPHOLOGY COMMENT NORMAL; TOXIC GRANULATION SLIGHT
[2021-02-08] MEDS: LINEZOLID 600 MG/D5W 300ML 300 ML IV SCH ×2 (07:50→20:31)
[2021-02-08] MEDS: COLLAGENASE 5 GM TUBE TOP SCH ×4 (08:01→17:00)
[2021-02-08] MEDS ORDERED: BUPIVACAINE 0.25% 30ML SDV ONE (10:03)
[2021-02-08] MEDS ORDERED: IOPAMIDOL 300MG/ML 50ML INFUS..BTL IV ONE (10:03)
[2021-02-08] MEDS ORDERED: HYDROCODONE/APAP 7.5MG-325MG 1 EA TAB PO PRN (13:00)
[2021-02-08] MEDS ORDERED: PROMETHAZINE HCL (IM) 25 MG/ML VIAL IM ONE (13:28)
[2021-02-08] MEDS ORDERED: HYDROMORPHONE 1MG/1ML INJ ONE (13:28)
[2021-02-08] MEDS ORDERED: FENTANYL CITRATE/PF 100MCG/2 ML INJ ONE (13:30)
[2021-02-08] MEDS ORDERED: MIDAZOLAM HCL 2 MG/2 ML VIAL ONE (13:30)
[2021-02-08] MEDS ORDERED: GLYCOPYRROLATE INJ 0.2 MG/ML VIAL ONE (13:50)
[2021-02-08] MEDS ORDERED: LIDOCAINE HCL 2% LOCAL INJ 5 ML SDV VIAL INJ ONE (13:50)
[2021-02-08] MEDS ORDERED: ONDANSETRON HCL INJ 2MG/ML 2ML 2 MG/ML VIAL ONE (13:50)
[2021-02-08] MEDS ORDERED: SEVOFLURANE INHAL SOLN 250 ML PEN BTL ONE (13:50)
[2021-02-08] MEDS ORDERED: NEOSTIGMINE 1 MG/ML 10ML VIAL ONE (13:50)
[2021-02-08] MEDS ORDERED: PROPOFOL IV EMULSION 10 MG/ML 20 ML VIAL ONE (13:50)
[2021-02-08] MEDS ORDERED: POVIDONE IODINE 0.05% 0.05 % ML PO ONE (13:50)
[2021-02-08] MEDS ORDERED: ROCURONIUM BROMIDE 10 MG/ML 5ML VIAL IV ONE (13:50)
[2021-02-08] MEDS: IRON SUCROSE 100 MG in SODIUM CHLORIDE 0.9% 100 ML 100 ML IV SCH (14:43)
[2021-02-08] MEDS: POTASSIUM CHLORIDE 20MEQ/100ML 100 ML IV ONE ×2 (14:51→14:55)
[2021-02-08] MEDS ORDERED: POTASSIUM CHLORIDE 20MEQ/100ML 100 ML IV ONE (15:00)
[2021-02-08] MEDS: SODIUM CHLORIDE 0.45% 1,000 ML IV SCH (16:05)
[2021-02-09] VITALS (8 sets, daily range): BP systolic 141–175; BP diastolic 67–87
[2021-02-09] MEDS: Morphine 4mg Syringe 4 MG/ML INJ IV PRN ×2 (01:03→17:38)
[2021-02-09] MEDS: ONDANSETRON HCL INJ 2MG/ML 2ML 2 MG/ML VIAL IV PRN ×5 (01:03→22:18)
[2021-02-09] MEDS: PIPERACILLIN/TAZOBACTAM 2.25 GM in SODIUM CHLORIDE 0.9% 50ML 50 ML IV SCH ×4 (03:52→22:00)
[2021-02-09] MEDS: SODIUM CHLORIDE 0.45% 1,000 ML IV SCH ×2 (05:49→18:40)
[2021-02-09 05:50] LABS: BASOPHILS # (AUTO) 0.1 (0.0-0.1); BASOPHILS % 0.9 % (0.0-1.0); EOSINOPHILS % 0.6 % (0.0-6.0); HEMATOCRIT 34.3 % (34.2-44.1); HEMOGLOBIN 11.1 g/dL (12.0-16.0); LYMPHOCYTES # (AUTO) 1.4 (1.0-3.2); LYMPHOCYTES % 19.7 % (18.0-39.1); MEAN CORPUSCULAR HEMOGLOBIN 28.7 pg (28-32); MEAN CORPUSCULAR HGB CONC 32.4 g/dL (31-35); MEAN CORPUSCULAR VOLUME 88.6 fL (81-99); MONOCYTES # (AUTO) 1.6 (0.2-0.8); MONOCYTES % 23.2 % (4.4-11.3); NEUTROPHILS # (AUTO) 3.3 (2.1-6.9); NEUTROPHILS % 46.7 % (38.7-80.0); PLATELET COUNT 253 x10e3/uL (140-360); RED BLOOD COUNT 3.87 x10e6/uL (3.6-5.1); RED CELL DISTRIBUTION WIDTH 17.8 % (11.7-14.4)
[2021-02-09 06:38] LABS: ALBUMIN 2.6 g/dL (3.5-5.0); ALBUMIN/GLOBULIN RATIO 0.6 (0.8-2.0); CALCIUM 8.5 mg/dL (8.4-10.2); CREATININE, SERUM 1.32 mg/dL (0.57-1.11)
[2021-02-09 08:20] LABS: ANISOCYTOSIS SLIGHT; LYMPHOCYTES % (MANUAL) 20 % (19-48); METAMYELOCYTES % (MANUAL) 2 % (0-0); MONOCYTES % (MANUAL) 18 % (3.4-9.0); MYELOCYTES % (MANUAL) 6 % (0-0); NEUTROPHILS % (MANUAL) 54 % (40-74); PLATELET ESTIMATE ADEQUATE; PLATELET MORPHOLOGY COMMENT NORMAL; RBC MORPHOLOGY COMMENT NORMAL
[2021-02-09] MEDS: INSULIN LISPRO 100 UNIT/1 ML 3ML VIAL SQ SCH ×4 (08:30→21:00)
[2021-02-09] MEDS: IRON SUCROSE 100 MG in SODIUM CHLORIDE 0.9% 100 ML 100 ML IV SCH ×2 (09:00→21:33)
[2021-02-09] MEDS: LINEZOLID 600 MG/D5W 300ML 300 ML IV SCH ×2 (09:00→21:00)
[2021-02-09] MEDS ORDERED: POTASSIUM CHLORIDE 20 MEQ TAB CR PO ONE (09:00)
[2021-02-09] MEDS: COLLAGENASE 5 GM TUBE TOP SCH ×2 (09:00→21:00)
[2021-02-09] MEDS: CARVEDILOL 12.5 MG TAB PO SCH ×2 (11:47→17:30)
[2021-02-09] MEDS ORDERED: IRON SUCROSE 100 MG in SODIUM CHLORIDE 0.9% 100 ML 100 ML IV ONE (21:30)
[2021-02-09] MEDS: HYDROMORPHONE 1MG/1ML INJ IV PRN (22:18)
[2021-02-09] MEDS ORDERED: METOCLOPRAMIDE HCL 10 MG/2ML VIAL IV STA (23:15)
[2021-02-10] VITALS (8 sets, daily range): BP systolic 128–194; BP diastolic 70–93
[2021-02-10] MEDS: CLONIDINE HCL 0.1 MG TAB PO PRN
[2021-02-10] MEDS: PIPERACILLIN/TAZOBACTAM 2.25 GM in SODIUM CHLORIDE 0.9% 50ML 50 ML IV SCH ×4 (04:00→22:20)
[2021-02-10] MEDS: METOCLOPRAMIDE HCL 10 MG/2ML VIAL IV SCH ×4 (06:15→23:37)
[2021-02-10 07:28] LABS: BASOPHILS # (AUTO) 0.1 (0.0-0.1); BASOPHILS % 1.1 % (0.0-1.0); EOSINOPHILS # (AUTO) 0.1 (0.0-0.4); EOSINOPHILS % 0.9 % (0.0-6.0); HEMATOCRIT 36.4 % (34.2-44.1); HEMOGLOBIN 11.7 g/dL (12.0-16.0); LYMPHOCYTES # (AUTO) 1.5 (1.0-3.2); LYMPHOCYTES % 19.3 % (18.0-39.1); MEAN CORPUSCULAR HEMOGLOBIN 28.5 pg (28-32); MEAN CORPUSCULAR HGB CONC 32.1 g/dL (31-35); MEAN CORPUSCULAR VOLUME 88.8 fL (81-99); MONOCYTES # (AUTO) 1.8 (0.2-0.8); MONOCYTES % 23.7 % (4.4-11.3); NEUTROPHILS # (AUTO) 3.7 (2.1-6.9); NEUTROPHILS % 48.7 % (38.7-80.0); PLATELET COUNT 254 x10e3/uL (140-360); RED CELL DISTRIBUTION WIDTH 17.2 % (11.7-14.4)
[2021-02-10] MEDS: INSULIN LISPRO 100 UNIT/1 ML 3ML VIAL SQ SCH ×4 (07:30→20:57)
[2021-02-10 07:57] LABS: ALBUMIN 2.7 g/dL (3.5-5.0); ALBUMIN/GLOBULIN RATIO 0.6 (0.8-2.0); ANION GAP 16.9 mmol/L (8-16); BILIRUBIN,DIRECT 0.4 mg/dL (0.0-0.5); CALCIUM 8.4 mg/dL (8.4-10.2); CREATININE, SERUM 1.17 mg/dL (0.57-1.11)
[2021-02-10] MEDS: SODIUM CHLORIDE 0.45% 1,000 ML IV SCH ×2 (08:00→23:14)
[2021-02-10 08:03] LABS: POTASSIUM 2.9 mmol/L (3.5-5.1)
[2021-02-10] MEDS: LINEZOLID 600 MG/D5W 300ML 300 ML IV SCH ×2 (08:30→20:30)
[2021-02-10] MEDS ORDERED: MAGNESIUM SULFATE 2GM/50ML 200 ML IV ONE (08:45)
[2021-02-10] MEDS ORDERED: POTASSIUM CHLORIDE 20MEQ/100ML 100 ML IV ONE (09:00)
[2021-02-10] MEDS: ASPIRIN 81 MG CHEW TAB PO SCH (09:00)
[2021-02-10] MEDS: COLLAGENASE 5 GM TUBE TOP SCH ×2 (09:00→20:54)
[2021-02-10] MEDS: CARVEDILOL 12.5 MG TAB PO SCH ×2 (09:00→20:54)
[2021-02-10] MEDS ORDERED: POTASSIUM CHLORIDE 10MEQ EA PO ONE (09:00)
[2021-02-10] MEDS ORDERED: SODIUM CHLORIDE 0.9% 250ML 250 ML ONE (09:05)
[2021-02-10] MEDS: ONDANSETRON HCL INJ 2MG/ML 2ML 2 MG/ML VIAL IV PRN ×2 (09:15→20:50)
[2021-02-10] MEDS: HYDROMORPHONE 1MG/1ML INJ IV PRN ×2 (09:28→20:50)
[2021-02-10] MEDS ORDERED: MAGNESIUM SULFATE 2GM/50ML 100 ML IV ONE (09:30)
[2021-02-10] MEDS: IRON SUCROSE 100 MG in SODIUM CHLORIDE 0.9% 100 ML 100 ML IV SCH (20:48)
[2021-02-11] VITALS (7 sets, daily range): BP systolic 132–178; BP diastolic 71–94
[2021-02-11] MEDS: PIPERACILLIN/TAZOBACTAM 2.25 GM in SODIUM CHLORIDE 0.9% 50ML 50 ML IV SCH ×4 (04:00→20:45)
[2021-02-11] MEDS: HYDROMORPHONE 1MG/1ML INJ IV PRN ×3 (05:45→22:46)
[2021-02-11] MEDS: METOCLOPRAMIDE HCL 10 MG/2ML VIAL IV SCH ×3 (06:00→17:18)
[2021-02-11] MEDS: INSULIN LISPRO 100 UNIT/1 ML 3ML VIAL SQ SCH ×4 (08:30→21:00)
[2021-02-11 08:37] LABS: BASOPHILS # (AUTO) 0.1 (0.0-0.1); BASOPHILS % 1.1 % (0.0-1.0); EOSINOPHILS # (AUTO) 0.1 (0.0-0.4); EOSINOPHILS % 0.6 % (0.0-6.0); HEMATOCRIT 35.6 % (34.2-44.1); HEMOGLOBIN 11.4 g/dL (12.0-16.0); LYMPHOCYTES # (AUTO) 1.5 (1.0-3.2); MEAN CORPUSCULAR HEMOGLOBIN 28.5 pg (28-32); MONOCYTES # (AUTO) 1.5 (0.2-0.8); NEUTROPHILS # (AUTO) 5.1 (2.1-6.9); NEUTROPHILS % 58.7 % (38.7-80.0); PLATELET COUNT 259 x10e3/uL (140-360); RED CELL DISTRIBUTION WIDTH 16.7 % (11.7-14.4)
[2021-02-11] MEDS: LINEZOLID 600 MG/D5W 300ML 300 ML IV SCH ×2 (08:42→20:33)
[2021-02-11 09:04] LABS: ALBUMIN 2.7 g/dL (3.5-5.0); ALBUMIN/GLOBULIN RATIO 0.5 (0.8-2.0); ANION GAP 16.5 mmol/L (8-16); CALCIUM 8.9 mg/dL (8.4-10.2); CREATININE, SERUM 1.12 mg/dL (0.57-1.11); POTASSIUM 3.5 mmol/L (3.5-5.1)
[2021-02-11] MEDS: CARVEDILOL 12.5 MG TAB PO SCH ×2 (09:11→20:46)
[2021-02-11] MEDS: ASPIRIN 81 MG CHEW TAB PO SCH (09:11)
[2021-02-11] MEDS: COLLAGENASE 5 GM TUBE TOP SCH ×2 (09:11→20:47)
[2021-02-11] MEDS ORDERED: MAGNESIUM SULFATE 2GM/50ML 50 ML IV ONE (09:45)
[2021-02-11] MEDS ORDERED: POTASSIUM CHLORIDE 20 MEQ TAB CR PO NR (09:45)
[2021-02-11 09:52] LABS: EOSINOPHILS % (MANUAL) 1 % (0-7); LYMPHOCYTES % (MANUAL) 18 % (19-48); METAMYELOCYTES % (MANUAL) 1 % (0-0); MONOCYTES % (MANUAL) 12 % (3.4-9.0); NEUTROPHILS % (MANUAL) 67 % (40-74); PROMYELOCYTES % (MANUAL) 1 % (0-0)
[2021-02-11 09:54] LABS: PLATELET ESTIMATE ADEQUATE; PLATELET MORPHOLOGY COMMENT NORMAL; RBC MORPHOLOGY COMMENT NORMAL
[2021-02-11] MEDS: LOSARTAN POTASSIUM 100 MG TAB PO SCH ×2 (10:38→20:47)
[2021-02-11] MEDS: SODIUM CHLORIDE 0.45% 1,000 ML IV SCH (10:40)
[2021-02-11] MEDS ORDERED: AMLODIPINE BESYLATE 5 MG TAB PO ONE (10:45)
[2021-02-11] MEDS: IRON SUCROSE 100 MG in SODIUM CHLORIDE 0.9% 100 ML 100 ML IV SCH (20:44)
[2021-02-12] MEDS: SODIUM CHLORIDE 0.45% 1,000 ML IV SCH ×2 (00:43→13:39)
[2021-02-12] MEDS: MECLIZINE HCL 12.5 MG TAB PO SCH ×4 (01:00→22:22)
[2021-02-12] MEDS: PIPERACILLIN/TAZOBACTAM 2.25 GM in SODIUM CHLORIDE 0.9% 50ML 50 ML IV SCH ×4 (03:00→22:28)
[2021-02-12 05:07] VITALS: BP 154/85
[2021-02-12] MEDS: METOCLOPRAMIDE HCL 10 MG/2ML VIAL IV SCH ×4 (05:09→17:27)
[2021-02-12] MEDS: HYDROMORPHONE 1MG/1ML INJ IV PRN ×3 (05:10→17:27)
[2021-02-12 07:46] LABS: BASOPHILS # (AUTO) 0.1 (0.0-0.1); BASOPHILS % 0.9 % (0.0-1.0); EOSINOPHILS # (AUTO) 0.1 (0.0-0.4); EOSINOPHILS % 0.8 % (0.0-6.0); HEMATOCRIT 35.3 % (34.2-44.1); HEMOGLOBIN 11.5 g/dL (12.0-16.0); LYMPHOCYTES # (AUTO) 1.2 (1.0-3.2); LYMPHOCYTES % 17.6 % (18.0-39.1); MEAN CORPUSCULAR HEMOGLOBIN 28.5 pg (28-32); MEAN CORPUSCULAR HGB CONC 32.6 g/dL (31-35); MEAN CORPUSCULAR VOLUME 87.6 fL (81-99); MONOCYTES # (AUTO) 0.8 (0.2-0.8); MONOCYTES % 12.6 % (4.4-11.3); NEUTROPHILS # (AUTO) 4.1 (2.1-6.9); NEUTROPHILS % 63.2 % (38.7-80.0); PLATELET COUNT 256 x10e3/uL (140-360); RED BLOOD COUNT 4.03 x10e6/uL (3.6-5.1); RED CELL DISTRIBUTION WIDTH 16.2 % (11.7-14.4)
[2021-02-12 07:54] VITALS: BP 154/85
[2021-02-12 08:02] VITALS: BP 172/94
[2021-02-12 08:08] LABS: AMYLASE 94 U/L (25-125); LIPASE 84 U/L (8-78)
[2021-02-12] MEDS: INSULIN LISPRO 100 UNIT/1 ML 3ML VIAL SQ SCH ×4 (08:15→21:00)
[2021-02-12] MEDS: LINEZOLID 600 MG/D5W 300ML 300 ML IV SCH (08:16)
[2021-02-12] MEDS: ASPIRIN 81 MG CHEW TAB PO SCH (08:17)
[2021-02-12] MEDS: CARVEDILOL 12.5 MG TAB PO SCH ×2 (08:17→22:25)
[2021-02-12] MEDS: AMLODIPINE BESYLATE 5 MG TAB PO SCH (08:18)
[2021-02-12] MEDS: LOSARTAN POTASSIUM 100 MG TAB PO SCH ×2 (08:26→21:00)
[2021-02-12 08:27] LABS: ALBUMIN 2.7 g/dL (3.5-5.0); ALBUMIN/GLOBULIN RATIO 0.6 (0.8-2.0); ANION GAP 18.4 mmol/L (8-16); CALCIUM 8.4 mg/dL (8.4-10.2); CREATININE, SERUM 0.98 mg/dL (0.57-1.11); POTASSIUM 3.4 mmol/L (3.5-5.1)
[2021-02-12] MEDS ORDERED: POTASSIUM CHLORIDE 20 MEQ TAB CR PO NR (11:30)
[2021-02-12 11:40] VITALS: BP 139/73
[2021-02-12] MEDS: COLLAGENASE 5 GM TUBE TOP SCH ×2 (12:56→21:00)
[2021-02-12 15:29] VITALS: BP 147/96
[2021-02-12 20:00] VITALS: BP 132/86
[2021-02-12] MEDS: IRON SUCROSE 100 MG in SODIUM CHLORIDE 0.9% 100 ML 100 ML IV SCH (21:00)
[2021-02-12] MEDS: ONDANSETRON HCL INJ 2MG/ML 2ML 2 MG/ML VIAL IV PRN (21:29)
[2021-02-13] VITALS: BP 139/94
[2021-02-13] MEDS: SODIUM CHLORIDE 0.45% 1,000 ML IV SCH ×2 (01:55→16:41)
[2021-02-13] MEDS: PIPERACILLIN/TAZOBACTAM 2.25 GM in SODIUM CHLORIDE 0.9% 50ML 50 ML IV SCH ×2 (03:00→08:49)
[2021-02-13] MEDS: ONDANSETRON HCL INJ 2MG/ML 2ML 2 MG/ML VIAL IV PRN ×2 (03:58→12:52)
[2021-02-13] MEDS: HYDROMORPHONE 1MG/1ML INJ IV PRN (03:58)
[2021-02-13 04:00] VITALS: BP_SYST 170; BP_SYST 172; BP_DIAS 111; BP_DIAS 84
[2021-02-13] MEDS: METOCLOPRAMIDE HCL 10 MG/2ML VIAL IV SCH ×5 (06:16→23:06)
[2021-02-13] MEDS: MECLIZINE HCL 12.5 MG TAB PO SCH ×3 (06:16→21:49)
[2021-02-13 06:50] LABS: BASOPHILS # (AUTO) 0.1 (0.0-0.1); EOSINOPHILS % 0.8 % (0.0-6.0); HEMATOCRIT 33.2 % (34.2-44.1); HEMOGLOBIN 10.8 g/dL (12.0-16.0); LYMPHOCYTES # (AUTO) 0.9 (1.0-3.2); LYMPHOCYTES % 18.1 % (18.0-39.1); MEAN CORPUSCULAR HGB CONC 32.5 g/dL (31-35); MONOCYTES # (AUTO) 0.6 (0.2-0.8); NEUTROPHILS # (AUTO) 3.4 (2.1-6.9); NEUTROPHILS % 64.6 % (38.7-80.0); PLATELET COUNT 256 x10e3/uL (140-360); RED BLOOD COUNT 3.73 x10e6/uL (3.6-5.1); RED CELL DISTRIBUTION WIDTH 16.2 % (11.7-14.4)
[2021-02-13 07:04] LABS: ALBUMIN 2.6 g/dL (3.5-5.0); ALBUMIN/GLOBULIN RATIO 0.6 (0.8-2.0); ANION GAP 18.2 mmol/L (8-16); CALCIUM 8.6 mg/dL (8.4-10.2); CREATININE, SERUM 0.97 mg/dL (0.57-1.11); POTASSIUM 3.2 mmol/L (3.5-5.1)
[2021-02-13 07:39] VITALS: BP 140/99
[2021-02-13 08:15] VITALS: BP 140/99
[2021-02-13] MEDS: CARVEDILOL 12.5 MG TAB PO SCH ×2 (08:49→21:47)
[2021-02-13] MEDS: AMLODIPINE BESYLATE 5 MG TAB PO SCH (08:49)
[2021-02-13] MEDS: ASPIRIN 81 MG CHEW TAB PO SCH (08:49)
[2021-02-13] MEDS: CLOPIDOGREL BISULFATE 75 MG TAB PO SCH (08:49)
[2021-02-13] MEDS: LOSARTAN POTASSIUM 100 MG TAB PO SCH ×2 (08:49→21:48)
[2021-02-13] MEDS: INSULIN LISPRO 100 UNIT/1 ML 3ML VIAL SQ SCH ×4 (08:51→21:00)
[2021-02-13] MEDS ORDERED: POTASSIUM CHLORIDE 20 MEQ TAB CR PO STA (08:55)
[2021-02-13] MEDS ORDERED: MAGNESIUM SULFATE 2GM/50ML 50 ML IV ONE ×2 (09:00→12:30)
[2021-02-13] MEDS ORDERED: POTASSIUM CHLORIDE 20 MEQ TAB CR PO NR (12:30)
[2021-02-13] MEDS: COLLAGENASE 5 GM TUBE TOP SCH ×2 (12:48→21:49)
[2021-02-13] MEDS: CIPROFLOXACIN 400 MG/D5W 200ML 200 ML IV SCH ×2 (12:56→21:49)
[2021-02-13] MEDS ORDERED: PIPERACILLIN/TAZOBACTAM 2.25 GM in SODIUM CHLORIDE 0.9% 50ML 50 ML IV SCH (15:00)
[2021-02-13 20:17] VITALS: BP 159/77
[2021-02-13 21:00] VITALS: BP 159/77
[2021-02-13] MEDS: IRON SUCROSE 100 MG in SODIUM CHLORIDE 0.9% 100 ML 100 ML IV SCH (21:47)
[2021-02-14] VITALS (7 sets, daily range): BP systolic 141–172; BP diastolic 66–99
[2021-02-14] MEDS: ONDANSETRON HCL INJ 2MG/ML 2ML 2 MG/ML VIAL IV PRN (04:00)
[2021-02-14 04:36] LABS: CLARITY,URINE CLOUDY (CLEAR); COLOR,URINE YELLOW (YELLOW); KETONES,URINE TRACE (NEGATIVE); LEUKOCYTE ESTERASE ,URINE NEGATIVE (NEGATIVE); NITRITE,URINE NEGATIVE (NEGATIVE); PROTEIN,URINE DIPSTICK NEGATIVE (NEGATIVE); URINE UROBILINOGEN 0.2 mg/dL (0.2 - 1)
[2021-02-14 04:44] LABS: BACTERIA,URINE FEW /HPF; EPITHELIAL CELLS,URINE MODERATE /LPF; RBC,URINE 0-5 /HPF (0-5); TRANSITIONAL EPI CELLS,URINE MODERATE; WBC,URINE (MAN) 0-5 /HPF (0-5); YEAST,URINE FEW
[2021-02-14] MEDS: ONDANSETRON HCL INJ 2MG/ML 2ML 2 MG/ML VIAL IV SCH ×3 (06:09→17:03)
[2021-02-14] MEDS: MECLIZINE HCL 12.5 MG TAB PO SCH ×3 (06:09→21:30)
[2021-02-14 07:17] LABS: ALBUMIN 2.8 g/dL (3.5-5.0); ALBUMIN/GLOBULIN RATIO 0.7 (0.8-2.0); ANION GAP 17.2 mmol/L (8-16); CALCIUM 8.7 mg/dL (8.4-10.2); CREATININE, SERUM 1.01 mg/dL (0.57-1.11); MAGNESIUM 1.7 MG/DL (1.3-2.1); POTASSIUM 3.2 mmol/L (3.5-5.1)
[2021-02-14 08:02] LABS: AMYLASE 119 U/L (25-125); LIPASE 139 U/L (8-78)
[2021-02-14] MEDS: SODIUM CHLORIDE 0.45% 1,000 ML IV SCH ×3 (08:27→22:20)
[2021-02-14] MEDS: AMLODIPINE BESYLATE 5 MG TAB PO SCH (08:28)
[2021-02-14] MEDS: ASPIRIN 81 MG CHEW TAB PO SCH (08:28)
[2021-02-14] MEDS: METOCLOPRAMIDE HCL 10 MG/2ML VIAL IV SCH ×4 (08:28→21:30)
[2021-02-14] MEDS: CLOPIDOGREL BISULFATE 75 MG TAB PO SCH (08:29)
[2021-02-14] MEDS: CARVEDILOL 12.5 MG TAB PO SCH ×2 (08:29→21:30)
[2021-02-14] MEDS: LOSARTAN POTASSIUM 100 MG TAB PO SCH ×2 (08:30→21:30)
[2021-02-14] MEDS: COLLAGENASE 5 GM TUBE TOP SCH ×2 (08:31→21:30)
[2021-02-14] MEDS: INSULIN LISPRO 100 UNIT/1 ML 3ML VIAL SQ SCH ×4 (08:34→21:00)
[2021-02-14] MEDS ORDERED: CARVEDILOL 12.5 MG TAB PO SCH (09:15)
[2021-02-14 09:23] LABS: BASOPHILS # (AUTO) 0.1 (0.0-0.1); BASOPHILS % 1.1 % (0.0-1.0); EOSINOPHILS # (AUTO) 0.1 (0.0-0.4); EOSINOPHILS % 0.9 % (0.0-6.0); HEMATOCRIT 33.2 % (34.2-44.1); HEMOGLOBIN 10.8 g/dL (12.0-16.0); LYMPHOCYTES # (AUTO) 1.4 (1.0-3.2); LYMPHOCYTES % 25.3 % (18.0-39.1); MEAN CORPUSCULAR HEMOGLOBIN 28.7 pg (28-32); MEAN CORPUSCULAR HGB CONC 32.5 g/dL (31-35); MEAN CORPUSCULAR VOLUME 88.3 fL (81-99); MONOCYTES # (AUTO) 0.8 (0.2-0.8); MONOCYTES % 14.5 % (4.4-11.3); NEUTROPHILS # (AUTO) 3.1 (2.1-6.9); NEUTROPHILS % 55.5 % (38.7-80.0); PLATELET COUNT 282 x10e3/uL (140-360); RED BLOOD COUNT 3.76 x10e6/uL (3.6-5.1); RED CELL DISTRIBUTION WIDTH 16.1 % (11.7-14.4)
[2021-02-14] MEDS: CIPROFLOXACIN 400 MG/D5W 200ML 200 ML IV SCH ×2 (09:43→22:30)
[2021-02-14] MEDS ORDERED: POTASSIUM CHLORIDE 20 MEQ TAB CR PO ONE (10:00)
[2021-02-14] MEDS ORDERED: INSULIN LISPRO 100 UNIT/1 ML 3ML VIAL SQ SCH (21:15)
[2021-02-14] MEDS: IRON SUCROSE 100 MG in SODIUM CHLORIDE 0.9% 100 ML 100 ML IV SCH (21:30)
[2021-02-14] MEDS ORDERED: INSULIN LISPRO 100 UNIT/1 ML 3ML VIAL SQ ONE (23:00)
[2021-02-15] VITALS (8 sets, daily range): BP systolic 87–143; BP diastolic 56–83
[2021-02-15] MEDS: ONDANSETRON HCL INJ 2MG/ML 2ML 2 MG/ML VIAL IV SCH ×4 (00:30→17:34)
[2021-02-15 06:19] LABS: HEMATOCRIT 31.3 % (34.2-44.1); HEMOGLOBIN 10.1 g/dL (12.0-16.0); MEAN CORPUSCULAR HEMOGLOBIN 28.9 pg (28-32); MEAN CORPUSCULAR HGB CONC 32.3 g/dL (31-35); MEAN CORPUSCULAR VOLUME 89.7 fL (81-99); PLATELET COUNT 262 x10e3/uL (140-360); RED BLOOD COUNT 3.49 x10e6/uL (3.6-5.1); RED CELL DISTRIBUTION WIDTH 16.2 % (11.7-14.4)
[2021-02-15] MEDS: MECLIZINE HCL 12.5 MG TAB PO SCH ×3 (06:45→21:45)
[2021-02-15 07:07] LABS: ALBUMIN 2.8 g/dL (3.5-5.0); ALBUMIN/GLOBULIN RATIO 0.7 (0.8-2.0); ANION GAP 16.5 mmol/L (8-16); CALCIUM 9.3 mg/dL (8.4-10.2); CREATININE, SERUM 1.09 mg/dL (0.57-1.11); POTASSIUM 3.5 mmol/L (3.5-5.1)
[2021-02-15 07:34] LABS: BAND NEUTROPHILS % (MANUAL) 1 %; LYMPHOCYTES % (MANUAL) 29 % (19-48); METAMYELOCYTES % (MANUAL) 1 % (0-0); MONOCYTES % (MANUAL) 12 % (3.4-9.0); MYELOCYTES % (MANUAL) 1 % (0-0); NEUTROPHILS % (MANUAL) 56 % (40-74); PLATELET ESTIMATE ADEQUATE; PLATELET MORPHOLOGY COMMENT NORMAL; RBC MORPHOLOGY COMMENT NORMAL
[2021-02-15] MEDS: METOCLOPRAMIDE HCL 10 MG/2ML VIAL IV SCH ×4 (08:20→21:45)
[2021-02-15] MEDS: ASPIRIN 81 MG CHEW TAB PO SCH (08:23)
[2021-02-15] MEDS: LOSARTAN POTASSIUM 100 MG TAB PO SCH ×2 (08:24→21:45)
[2021-02-15] MEDS: CARVEDILOL 12.5 MG TAB PO SCH ×2 (08:24→21:45)
[2021-02-15] MEDS: AMLODIPINE BESYLATE 5 MG TAB PO SCH (08:25)
[2021-02-15] MEDS: CLOPIDOGREL BISULFATE 75 MG TAB PO SCH (08:25)
[2021-02-15] MEDS: COLLAGENASE 5 GM TUBE TOP SCH ×2 (08:25→22:50)
[2021-02-15] MEDS ORDERED: MAGNESIUM SULFATE 2GM/50ML 50 ML IV ONE (10:00)
[2021-02-15] MEDS: CIPROFLOXACIN 400 MG/D5W 200ML 200 ML IV SCH ×2 (10:02→21:45)
[2021-02-15] MEDS: INSULIN LISPRO 100 UNIT/1 ML 3ML VIAL SQ SCH ×4 (10:02→21:45)
[2021-02-15] MEDS ORDERED: POTASSIUM CHLORIDE 20 MEQ TAB CR PO ONE (10:30)
[2021-02-15] MEDS ORDERED: ALTEPLASE RECOMBINANT 2 MG/2 ML VIAL IV NR (12:30)
[2021-02-15] MEDS ORDERED: ATORVASTATIN 20 MG TAB PO SCH (21:00)
[2021-02-15] MEDS: SODIUM CHLORIDE 0.45% 1,000 ML IV SCH (21:45)
[2021-02-15] MEDS: IRON SUCROSE 100 MG in SODIUM CHLORIDE 0.9% 100 ML 100 ML IV SCH (22:49)
[2021-02-16] VITALS: BP 151/72
[2021-02-16] MEDS: ONDANSETRON HCL INJ 2MG/ML 2ML 2 MG/ML VIAL IV SCH ×3 (01:38→12:39)
[2021-02-16 05:27] VITALS: BP 108/57
[2021-02-16] MEDS: MECLIZINE HCL 12.5 MG TAB PO SCH (06:09)
[2021-02-16 08:20] VITALS: BP 134/64
[2021-02-16] MEDS: METOCLOPRAMIDE HCL 10 MG/2ML VIAL IV SCH ×2 (09:13→12:39)
[2021-02-16] MEDS: ASPIRIN 81 MG CHEW TAB PO SCH (09:13)
[2021-02-16] MEDS: CARVEDILOL 12.5 MG TAB PO SCH (09:14)
[2021-02-16] MEDS: LOSARTAN POTASSIUM 100 MG TAB PO SCH (09:14)
[2021-02-16] MEDS: AMLODIPINE BESYLATE 5 MG TAB PO SCH (09:14)
[2021-02-16] MEDS: CIPROFLOXACIN 400 MG/D5W 200ML 200 ML IV SCH (09:15)
[2021-02-16] MEDS: COLLAGENASE 5 GM TUBE TOP SCH (09:15)
[2021-02-16] MEDS: CLOPIDOGREL BISULFATE 75 MG TAB PO SCH (09:15)
[2021-02-16] MEDS: INSULIN LISPRO 100 UNIT/1 ML 3ML VIAL SQ SCH ×2 (09:27→12:39)
[2021-02-16 09:44] VITALS: BP 134/64
[2021-02-16] MEDS: SODIUM CHLORIDE 0.45% 1,000 ML IV SCH (10:23)
[2021-02-16] MEDS ORDERED: CIPRO500 MG PO (11:21)
[2021-02-16] MEDS ORDERED: PLAVIX75 MG PO (11:25)
[2021-02-16] MEDS ORDERED: COREG12.5 MG PO (11:26)
[2021-02-16] MEDS ORDERED: AMLODIPINE BESYL5 MG PO (11:26)
[2021-02-16 11:43] VITALS: BP 121/70
[2021-02-16] MEDS ORDERED: PANTOPRAZOLE SOD 40 MG TABEC PO SCH (21:00)
== END 2021-02-16 13:52 | disposition home or self-care (01) | DRG 854 ==
LOC: ER 11:50 → ERHOLD 16:03 → MED/SURG 18:14 → MED/SURG3 02-13 09:30
PROVIDERS: ADMIT Internal Medicine; ATTEND Internal Medicine
PROC: 0JBQ0ZZ Excision of Right Foot Subcutaneous Tissue and Fascia, Open Approach (ICD-10-PCS; 2021-02-06)
PROC: 0FT44ZZ Resection of Gallbladder, Percutaneous Endoscopic Approach (ICD-10-PCS; 2021-02-08)
PROC: 0JBQ0ZZ Excision of Right Foot Subcutaneous Tissue and Fascia, Open Approach (ICD-10-PCS; 2021-02-08)
PROC: 0FB03ZX Excision of Liver, Percutaneous Approach, Diagnostic (ICD-10-PCS; principal; 2021-02-08 10:30)
PROC: 0JBQ0ZZ Excision of Right Foot Subcutaneous Tissue and Fascia, Open Approach (ICD-10-PCS; 2021-02-14)
DX: A41.9 Sepsis, unspecified organism (principal); N17.9 Acute kidney failure, unspecified; N18.4 Chronic kidney disease, stage 4 (severe); M86.671 Other chronic osteomyelitis, right ankle and foot; D61.818 Other pancytopenia; E11.52 Type 2 diabetes mellitus with diabetic peripheral angiopathy with gangrene; I96 Gangrene, not elsewhere classified; K80.10 Calculus of gallbladder with chronic cholecystitis without obstruction; E78.5 Hyperlipidemia, unspecified; E86.0 Dehydration; E11.621 Type 2 diabetes mellitus with foot ulcer; L97.514 Non-pressure chronic ulcer of other part of right foot with necrosis of bone; E11.69 Type 2 diabetes mellitus with other specified complication; E88.09 Other disorders of plasma-protein metabolism, not elsewhere classified; E83.52 Hypercalcemia; D70.9 Neutropenia, unspecified; I25.10 Atherosclerotic heart disease of native coronary artery without angina pectoris; E87.6 Hypokalemia; D72.819 Decreased white blood cell count, unspecified; E61.1 Iron deficiency; I13.10 Hypertensive heart and chronic kidney disease without heart failure, with stage 1 through stage 4 chronic kidney disease, or unspecified chronic kidney disease; E11.22 Type 2 diabetes mellitus with diabetic chronic kidney disease; E83.42 Hypomagnesemia; D69.59 Other secondary thrombocytopenia; K74.60 Unspecified cirrhosis of liver; Z20.822 Contact with and (suspected) exposure to COVID-19; D47.2 Monoclonal gammopathy; B96.5 Pseudomonas (aeruginosa) (mallei) (pseudomallei) as the cause of diseases classified elsewhere
CPT/HCPCS: 36415; 71045; 74176; 74181; 78227; 80048; 80053; 80076; 81001; 81025; 82150; 82248; 82550; 82553; 82607; 82746; 82784; 82948; 83540; 83690; 83735; 83880; 84100; 84466; 84484; 85007; 85025; 85027; 85045; 85610; 85730; 86644; 86645; 86663; 86664; 86665; 86850; 86900; 86920; 87040; 87071; 87075; 87186; 87205; 87493; 88304; 88307; 88313; 93005; 93306; 96361; 97139; 99284; A9537; C1766; J1170; J1442; J1756; J1885; J2001; J2020; J2250; J2270; J2405; J2543; J2550; J2710; J2765; J2997; J3010; J3475; J3480; J7030; J7050; U0002

== ENCOUNTER 2021-04-01 13:05 | Inpatient (IN) | payer OTHER ==
[~2021-04-01] VITALS: Ht 154.9 cm; Wt 56.7 kg
[2021-04-01] MEDS: SODIUM CHLORIDE 0.9% 1000ML 1,000 ML IV SCH (01:00)
[~2021-04-01 13:05] MED LIST changes: +AMLODIPINE BESYL5 MG PO; +CIPRO500 MG PO; +COREG12.5 MG PO; +JANUVIA100 MG PO; +PLAVIX75 MG PO
[2021-04-01] MEDS ORDERED: SODIUM CHLORIDE 0.9% 1000ML 1,000 ML IV ONE (13:15)
[2021-04-01] MEDS ORDERED: INSULIN REGULAR, HUMAN 100 UNIT/1 ML IV ONE ×2 (13:30→15:15)
[2021-04-01] MEDS ORDERED: CEFTRIAXONE 2 GM in SODIUM CHLORIDE 0.9% 100 ML IV ONE (13:45)
[2021-04-01 13:51] LABS: BASOPHILS % 0.6 % (0.0-1.0); EOSINOPHILS % 0.5 % (0.0-6.0); HEMATOCRIT 36.7 % (38.2-49.6); HEMOGLOBIN 12.7 g/dL (14.0-18.0); LYMPHOCYTES # (AUTO) 1.3 (1.0-3.2); LYMPHOCYTES % 19.4 % (18.0-39.1); MEAN CORPUSCULAR HGB CONC 34.6 g/dL (31-35); MEAN CORPUSCULAR VOLUME 89.5 fL (81-99); MONOCYTES # (AUTO) 0.5 (0.2-0.8); MONOCYTES % 7.1 % (4.4-11.3); NEUTROPHILS # (AUTO) 4.8 (2.1-6.9); NEUTROPHILS % 72.2 % (38.7-80.0); PLATELET COUNT 313 x10e3/uL (140-360); RED CELL DISTRIBUTION WIDTH 12.6 % (11.7-14.4)
[2021-04-01 14:09] LABS: ALBUMIN 3.5 g/dL (3.5-5.0); ALBUMIN/GLOBULIN RATIO 0.9 (0.8-2.0); ANION GAP 20.3 mmol/L (8-16); CALCIUM 9.6 mg/dL (8.4-10.2); CREATININE, SERUM 1.15 mg/dL (0.72-1.25); POTASSIUM 3.3 mmol/L (3.5-5.1)
[2021-04-01 14:13] LABS: CLARITY,URINE CLEAR (CLEAR); COLOR,URINE YELLOW (YELLOW)
[2021-04-01 14:14] LABS: KETONES,URINE NEGATIVE (NEGATIVE); LEUKOCYTE ESTERASE ,URINE NEGATIVE (NEGATIVE); NITRITE,URINE NEGATIVE (NEGATIVE); PROTEIN,URINE DIPSTICK NEGATIVE (NEGATIVE); URINE UROBILINOGEN 0.2 mg/dL (0.2 - 1)
[2021-04-01 14:37] LABS: EPITHELIAL CELLS,URINE RARE /LPF; RBC,URINE 0-5 /HPF (0-5); WBC,URINE (MAN) 0-5 /HPF (0-5)
[2021-04-01] MEDS ORDERED: POTASSIUM CHLORIDE 10MEQ/100ML 200 ML IV ONE (16:00)
[2021-04-01] MEDS ORDERED: DEXTROSE 50% SYRINGE 50 ML IV PRN (16:15)
[2021-04-01] MEDS ORDERED: INSULIN REGULAR, HUMAN 3ML VL 100 UNIT in SODIUM CHLORIDE 0.9% 100 ML IV SCH ×2 (16:45)
[2021-04-01] MEDS ORDERED: ONDANSETRON HCL INJ 2MG/ML 2ML 2 MG/ML VIAL IV PRN (18:00)
[2021-04-01] MEDS ORDERED: ZOLPIDEM TARTRATE 5 MG TAB PO PRN (18:00)
[2021-04-01] MEDS ORDERED: HYDRALAZINE HCL 20 MG/ML VIAL IV PRN (18:00)
[2021-04-01] MEDS ORDERED: ACETAMINOPHEN 325 MG TAB PO PRN (18:00)
[2021-04-01] MEDS: CARVEDILOL 12.5 MG TAB PO SCH (18:21)
[2021-04-01] MEDS ORDERED: POTASSIUM CHLORIDE 20 MEQ TAB CR PO STA (20:19)
[2021-04-01 20:58] LABS: ANION GAP 15.9 mmol/L (8-16); CALCIUM 9.4 mg/dL (8.4-10.2); CREATININE, SERUM 0.71 mg/dL (0.57-1.11)
[2021-04-01 21:01] LABS: POTASSIUM 2.9 mmol/L (3.5-5.1)
[2021-04-01] MEDS ORDERED: POTASSIUM CHLORIDE 10MEQ/100ML 100 ML IV ONE (21:15)
[2021-04-01] MEDS: ATORVASTATIN 40 MG TAB PO SCH (23:05)
[2021-04-02] VITALS (9 sets, daily range): BP systolic 133–156; BP diastolic 66–84
[2021-04-02] MEDS: SODIUM CHLORIDE 0.9% 1000ML 1,000 ML IV SCH ×3 (01:00→23:10)
[2021-04-02 07:22] LABS: BASOPHILS # (AUTO) 0.1 (0.0-0.1); BASOPHILS % 0.7 % (0.0-1.0); EOSINOPHILS # (AUTO) 0.1 (0.0-0.4); EOSINOPHILS % 1.8 % (0.0-6.0); HEMATOCRIT 36.2 % (34.2-44.1); HEMOGLOBIN 12.9 g/dL (12.0-16.0); LYMPHOCYTES % 29.9 % (18.0-39.1); MEAN CORPUSCULAR HEMOGLOBIN 31.7 pg (28-32); MEAN CORPUSCULAR HGB CONC 35.6 g/dL (31-35); MEAN CORPUSCULAR VOLUME 88.9 fL (81-99); MONOCYTES # (AUTO) 0.6 (0.2-0.8); MONOCYTES % 9.3 % (4.4-11.3); NEUTROPHILS # (AUTO) 3.9 (2.1-6.9); NEUTROPHILS % 57.7 % (38.7-80.0); PLATELET COUNT 299 x10e3/uL (140-360); RED BLOOD COUNT 4.07 x10e6/uL (3.6-5.1); RED CELL DISTRIBUTION WIDTH 12.7 % (11.7-14.4)
[2021-04-02] MEDS: PANTOPRAZOLE SOD 40 MG TABEC PO SCH (07:30)
[2021-04-02 07:51] LABS: ANION GAP 13.5 mmol/L (8-16); CALCIUM 9.7 mg/dL (8.4-10.2); CREATININE, SERUM 0.76 mg/dL (0.57-1.11); POTASSIUM 3.5 mmol/L (3.5-5.1)
[2021-04-02] MEDS: CARVEDILOL 12.5 MG TAB PO SCH ×2 (09:00→17:00)
[2021-04-02] MEDS: CEFTRIAXONE 2 GM in SODIUM CHLORIDE 0.9% 100 ML IV SCH (09:00)
[2021-04-02] MEDS: CLOPIDOGREL BISULFATE 75 MG TAB PO SCH (09:00)
[2021-04-02] MEDS: LOSARTAN POTASSIUM 100 MG TAB PO SCH (09:00)
[2021-04-02] MEDS ORDERED: DEXTROSE 50% SYRINGE 50 ML IV PRN (11:00)
[2021-04-02] MEDS ORDERED: INSULIN LISPRO 100 UNIT/1 ML 3ML VIAL SQ SCH ×2 (11:30→16:30)
[2021-04-02] MEDS: INSULIN LISPRO 100 UNIT/1 ML 3ML VIAL SQ SCH ×2 (16:30→21:00)
[2021-04-02 17:53] LABS: FREE T4 (FREE THYROXINE) 0.93 ng/dL (0.8-1.8); THYROID STIMULATING HORMONE 1.571 uIU/mL (0.350-4.940)
[2021-04-02] MEDS ORDERED: INSULIN GLARGINE 100 UNITS/ML VIAL SQ SCH (21:00)
[2021-04-02] MEDS: COLLAGENASE 5 GM TUBE TOP SCH (21:00)
[2021-04-02] MEDS: ATORVASTATIN 40 MG TAB PO SCH (21:00)
[2021-04-03] VITALS (8 sets, daily range): BP systolic 131–169; BP diastolic 62–75
[2021-04-03 06:15] LABS: BASOPHILS # (AUTO) 0.1 (0.0-0.1); BASOPHILS % 0.9 % (0.0-1.0); EOSINOPHILS # (AUTO) 0.1 (0.0-0.4); EOSINOPHILS % 2.3 % (0.0-6.0); HEMATOCRIT 36.9 % (34.2-44.1); HEMOGLOBIN 12.4 g/dL (12.0-16.0); LYMPHOCYTES % 34.5 % (18.0-39.1); MEAN CORPUSCULAR HEMOGLOBIN 30.6 pg (28-32); MEAN CORPUSCULAR HGB CONC 33.6 g/dL (31-35); MEAN CORPUSCULAR VOLUME 91.1 fL (81-99); MONOCYTES # (AUTO) 0.5 (0.2-0.8); MONOCYTES % 9.6 % (4.4-11.3); NEUTROPHILS % 52.2 % (38.7-80.0); PLATELET COUNT 291 x10e3/uL (140-360); RED BLOOD COUNT 4.05 x10e6/uL (3.6-5.1); RED CELL DISTRIBUTION WIDTH 12.6 % (11.7-14.4)
[2021-04-03 06:30] LABS: ALBUMIN 3.1 g/dL (3.5-5.0); ALBUMIN/GLOBULIN RATIO 0.8 (0.8-2.0); ANION GAP 12.5 mmol/L (8-16); CALCIUM 9.5 mg/dL (8.4-10.2); CREATININE, SERUM 0.77 mg/dL (0.57-1.11); POTASSIUM 3.5 mmol/L (3.5-5.1)
[2021-04-03] MEDS: PANTOPRAZOLE SOD 40 MG TABEC PO SCH (07:30)
[2021-04-03] MEDS: INSULIN LISPRO 100 UNIT/1 ML 3ML VIAL SQ SCH ×7 (07:30→20:38)
[2021-04-03] MEDS: COLLAGENASE 5 GM TUBE TOP SCH (09:00)
[2021-04-03] MEDS: CEFTRIAXONE 2 GM in SODIUM CHLORIDE 0.9% 100 ML IV SCH (09:00)
[2021-04-03] MEDS: CLOPIDOGREL BISULFATE 75 MG TAB PO SCH (09:00)
[2021-04-03] MEDS: LOSARTAN POTASSIUM 100 MG TAB PO SCH (09:00)
[2021-04-03] MEDS: CARVEDILOL 12.5 MG TAB PO SCH ×2 (09:00→16:31)
[2021-04-03] MEDS: ATORVASTATIN 40 MG TAB PO SCH (20:37)
[2021-04-03] MEDS ORDERED: INSULIN GLARGINE 100 UNITS/ML VIAL SQ SCH (21:00)
[2021-04-04] VITALS (8 sets, daily range): BP systolic 122–158; BP diastolic 64–108
[2021-04-04 05:06] LABS: BASOPHILS % 0.7 % (0.0-1.0); EOSINOPHILS # (AUTO) 0.1 (0.0-0.4); EOSINOPHILS % 1.7 % (0.0-6.0); HEMATOCRIT 33.6 % (34.2-44.1); HEMOGLOBIN 11.4 g/dL (12.0-16.0); LYMPHOCYTES # (AUTO) 1.9 (1.0-3.2); LYMPHOCYTES % 32.8 % (18.0-39.1); MEAN CORPUSCULAR HEMOGLOBIN 30.6 pg (28-32); MEAN CORPUSCULAR HGB CONC 33.9 g/dL (31-35); MEAN CORPUSCULAR VOLUME 90.3 fL (81-99); MONOCYTES # (AUTO) 0.6 (0.2-0.8); MONOCYTES % 9.7 % (4.4-11.3); NEUTROPHILS # (AUTO) 3.2 (2.1-6.9); NEUTROPHILS % 54.8 % (38.7-80.0); PLATELET COUNT 274 x10e3/uL (140-360); RED BLOOD COUNT 3.72 x10e6/uL (3.6-5.1); RED CELL DISTRIBUTION WIDTH 12.4 % (11.7-14.4)
[2021-04-04 05:19] LABS: CREATININE, SERUM 0.8 mg/dL (0.57-1.11)
[2021-04-04] MEDS: PANTOPRAZOLE SOD 40 MG TABEC PO SCH (07:30)
[2021-04-04] MEDS: INSULIN LISPRO 100 UNIT/1 ML 3ML VIAL SQ SCH ×7 (07:30→21:00)
[2021-04-04] MEDS: COLLAGENASE 5 GM TUBE TOP SCH (09:00)
[2021-04-04] MEDS: CARVEDILOL 12.5 MG TAB PO SCH ×2 (09:00→17:50)
[2021-04-04] MEDS ORDERED: ONDANSETRON HCL 4 MG ORAL DISINTEGRATING TAB PO PRN (09:00)
[2021-04-04] MEDS: LOSARTAN POTASSIUM 100 MG TAB PO SCH (09:00)
[2021-04-04] MEDS: CEFTRIAXONE 2 GM in SODIUM CHLORIDE 0.9% 100 ML IV SCH (09:00)
[2021-04-04] MEDS: CLOPIDOGREL BISULFATE 75 MG TAB PO SCH (09:00)
[2021-04-04] MEDS ORDERED: POTASSIUM CHLORIDE 20 MEQ TAB CR PO ONE (09:25)
[2021-04-04] MEDS: ATORVASTATIN 40 MG TAB PO SCH (21:00)
[2021-04-04] MEDS ORDERED: INSULIN GLARGINE 100 UNITS/ML VIAL SQ SCH (21:00)
[2021-04-05 01:02] VITALS: BP 132/65
[2021-04-05 04:46] VITALS: BP 131/84
[2021-04-05] MEDS: INSULIN LISPRO 100 UNIT/1 ML 3ML VIAL SQ SCH ×4 (07:30→11:30)
[2021-04-05 08:29] VITALS: BP 129/58
[2021-04-05 09:00] VITALS: BP 129/58
[2021-04-05] MEDS: COLLAGENASE 5 GM TUBE TOP SCH (09:40)
[2021-04-05] MEDS: CEFTRIAXONE 2 GM in SODIUM CHLORIDE 0.9% 100 ML IV SCH (09:40)
[2021-04-05] MEDS: LOSARTAN POTASSIUM 100 MG TAB PO SCH (09:40)
[2021-04-05] MEDS: PANTOPRAZOLE SOD 40 MG TABEC PO SCH (09:40)
[2021-04-05] MEDS: CLOPIDOGREL BISULFATE 75 MG TAB PO SCH (09:40)
[2021-04-05] MEDS: CARVEDILOL 12.5 MG TAB PO SCH (09:40)
[2021-04-05 12:01] VITALS: BP 138/82
[2021-04-05] MEDS ORDERED: INSULIN LISPRO 100 UNIT/1 ML 3ML VIAL SQ SCH (16:30)
[2021-04-05] MEDS ORDERED: INSULIN GLARGINE 100 UNITS/ML VIAL SQ SCH (21:00)
== END 2021-04-05 15:17 | disposition home or self-care (01) | DRG 623 ==
LOC: ER 13:30 → ERHOLD 16:21 → EDSEX 16:21 → MED/SURG2 23:48
PROVIDERS: ADMIT Internal Medicine; ATTEND Internal Medicine
PROC: 0JBQ0ZZ Excision of Right Foot Subcutaneous Tissue and Fascia, Open Approach (ICD-10-PCS; principal; 2021-04-03)
DX: E11.69 Type 2 diabetes mellitus with other specified complication (principal); L97.518 Non-pressure chronic ulcer of other part of right foot with other specified severity; M86.8X7 Other osteomyelitis, ankle and foot; L03.115 Cellulitis of right lower limb; E11.10 Type 2 diabetes mellitus with ketoacidosis without coma; N17.9 Acute kidney failure, unspecified; I10 Essential (primary) hypertension; E78.5 Hyperlipidemia, unspecified; E11.51 Type 2 diabetes mellitus with diabetic peripheral angiopathy without gangrene; Z79.899 Other long term (current) drug therapy; E11.621 Type 2 diabetes mellitus with foot ulcer; Z89.421 Acquired absence of other right toe(s); E11.40 Type 2 diabetes mellitus with diabetic neuropathy, unspecified; E11.628 Type 2 diabetes mellitus with other skin complications; I25.10 Atherosclerotic heart disease of native coronary artery without angina pectoris; E87.6 Hypokalemia; Z20.822 Contact with and (suspected) exposure to COVID-19
CPT/HCPCS: 36415; 71045; 80048; 80053; 81001; 82948; 83036; 83605; 83690; 83735; 84439; 84443; 84484; 85025; 87040; 87071; 87086; 87186; 87205; 93005; 96361; 99283; J0696; J1817; J3480; J7030; J7050; U0002

== ENCOUNTER 2024-04-14 13:21 | Inpatient (IN) | payer OTHER ==
[~2024-04-14] VITALS: Ht 154.9 cm; Wt 59.0 kg
[2024-04-14 13:55] VITALS: TEMP 98.5
[2024-04-14 16:06] LABS: BASOPHILS # (AUTO) 0.1 (0.0-0.1); BASOPHILS % 0.6 % (0.0-1.0); EOSINOPHILS # (AUTO) 0.2 (0.0-0.4); EOSINOPHILS % 2.2 % (0.0-6.0); HEMATOCRIT 27.1 % (34.2-44.1); HEMOGLOBIN 8.6 g/dL (12.0-16.0); LYMPHOCYTES # (AUTO) 4.3 (1.0-3.2); MEAN CORPUSCULAR HEMOGLOBIN 27.2 pg (28-32); MEAN CORPUSCULAR HGB CONC 31.7 g/dL (31-35); MEAN CORPUSCULAR VOLUME 85.8 fL (81-99); MONOCYTES # (AUTO) 0.7 (0.2-0.8); MONOCYTES % 6.9 % (4.4-11.3); NEUTROPHILS # (AUTO) 4.6 (2.1-6.9); NEUTROPHILS % 46.8 % (38.7-80.0); PLATELET COUNT 313 x10e3/uL (140-360); RED BLOOD COUNT 3.16 x10e6/uL (3.6-5.1); RED CELL DISTRIBUTION WIDTH 17.2 % (11.7-14.4); WHITE BLOOD COUNT 9.91 x10e3/uL (4.8-10.8)
[2024-04-14 16:28] LABS: INR 0.96; PROTHROMBIN TIME 13.4 seconds (11.9-14.5)
[2024-04-14 16:29] LABS: PARTIAL THROMBOPLASTIN TIME 30.2 seconds (23.8-35.5)
[2024-04-14 16:35] LABS: ALBUMIN 2.4 g/dL (3.5-5.0); ALBUMIN/GLOBULIN RATIO 0.3 (0.8-2.0); ANION GAP 14.7 mmol/L (8-16); BILIRUBIN,TOTAL 0.4 mg/dL (0.2-1.2); CREATININE, SERUM 1.68 mg/dL (0.57-1.11); POTASSIUM 4.7 mmol/L (3.5-5.1); TOTAL PROTEIN 9.9 g/dL (6.5-8.1)
[2024-04-14] MEDS ORDERED: IOPAMIDOL 370 MG/ML 100 ML INFUS..BTL INJ ONE (17:27)
[2024-04-14 17:31] VITALS: PULSE 93; RESP 18
[2024-04-14] MEDS: CEFTRIAXONE 2 GM in SODIUM CHLORIDE 0.9% 100 ML IV SCH (17:51)
[2024-04-14] MEDS: SODIUM CHLORIDE 0.9% 1000ML 1,000 ML IV ONE ×2 (17:52)
[2024-04-14] MEDS: VANCOMYCIN 1.25GM/250 ML (PEG) 250 ML IV SCH (18:00)
[2024-04-14 20:00] VITALS: BP 153/89; PULSE 88; RESP 17; TEMP 97.8
[2024-04-14 20:20] VITALS: BP 153/89; PULSE 88; RESP 17; TEMP 97.8; O2SAT 100
[2024-04-14] MEDS: SODIUM CHLORIDE 0.9% 1000ML 1,000 ML IV SCH (22:19)
[2024-04-15] VITALS (7 sets, daily range): BP systolic 120–141; BP diastolic 55–93; PULSE 80–103; RESP 17–20; TEMP 97.8–98.8; O2SAT 95–100
[2024-04-15 07:23] LABS: BASOPHILS # (AUTO) 0.1 (0.0-0.1); BASOPHILS % 0.7 % (0.0-1.0); EOSINOPHILS # (AUTO) 0.2 (0.0-0.4); EOSINOPHILS % 2.4 % (0.0-6.0); HEMATOCRIT 25.3 % (34.2-44.1); HEMOGLOBIN 7.4 g/dL (12.0-16.0); LYMPHOCYTES # (AUTO) 2.8 (1.0-3.2); LYMPHOCYTES % 37.4 % (18.0-39.1); MEAN CORPUSCULAR HEMOGLOBIN 26.7 pg (28-32); MEAN CORPUSCULAR HGB CONC 29.2 g/dL (31-35); MEAN CORPUSCULAR VOLUME 91.3 fL (81-99); MONOCYTES # (AUTO) 0.6 (0.2-0.8); MONOCYTES % 7.6 % (4.4-11.3); NEUTROPHILS # (AUTO) 3.8 (2.1-6.9); NEUTROPHILS % 51.6 % (38.7-80.0); PLATELET COUNT 277 x10e3/uL (140-360); RED BLOOD COUNT 2.77 x10e6/uL (3.6-5.1); WHITE BLOOD COUNT 7.36 x10e3/uL (4.8-10.8)
[2024-04-15 07:50] LABS: ALBUMIN 2.1 g/dL (3.5-5.0); ALBUMIN/GLOBULIN RATIO 0.3 (0.8-2.0); ANION GAP 12.4 mmol/L (8-16); BILIRUBIN,TOTAL 0.2 mg/dL (0.2-1.2); CREATININE, SERUM 1.14 mg/dL (0.57-1.11); POTASSIUM 4.4 mmol/L (3.5-5.1); TOTAL PROTEIN 8.5 g/dL (6.5-8.1)
[2024-04-15] MEDS ORDERED: MELATONIN 3 MG TAB PO PRN (10:30)
[2024-04-15] MEDS ORDERED: METOPROLOL TARTRATE INJ 1 MG/ML VIAL IV PRN (10:30)
[2024-04-15] MEDS ORDERED: DOCUSATE SODIUM 100 MG CAP PO PRN (10:30)
[2024-04-15] MEDS ORDERED: SIMETHICONE 80 MG CHEW PO PRN (10:30)
[2024-04-15 10:57] LABS: CHOL/HDL RATIO 4.7 (3.0-3.6)
[2024-04-15] MEDS: Morphine 2mg Syringe 2 MG/ML SYR IV PRN (11:30)
[2024-04-15] MEDS: ONDANSETRON HCL INJ 2MG/ML 2ML 2 MG/ML VIAL IV PRN (11:30)
[2024-04-15] MEDS ORDERED: LIDOCAINE HCL 2% LOCAL INJ 5 ML SDV VIAL INJ ONE (12:51)
[2024-04-15] MEDS ORDERED: PROPOFOL IV EMULSION 10 MG/ML 20 ML VIAL ONE (12:51)
[2024-04-15] MEDS ORDERED: EPHEDRINE SULFATE INJ 50 MG/ML VIAL ONE (13:20)
[2024-04-15] MEDS ORDERED: METOCLOPRAMIDE HCL 10 MG/2ML VIAL ONE (13:23)
[2024-04-15] MEDS ORDERED: ONDANSETRON HCL INJ 2MG/ML 2ML 2 MG/ML VIAL ONE (13:23)
[2024-04-15] MEDS ORDERED: FENTANYL CITRATE/PF 100MCG/2 ML INJ ONE ×2 (13:33→14:39)
[2024-04-15] MEDS: CARVEDILOL 12.5 MG TAB PO SCH (16:49)
[2024-04-15] MEDS: ENOXAPARIN SOD INJ 40 MG/0.4 ML SYR SC SCH (21:39)
[2024-04-15] MEDS: ATORVASTATIN 40 MG TAB PO SCH (21:39)
[2024-04-16] VITALS (11 sets, daily range): BP systolic 90–131; BP diastolic 56–75; PULSE 68–100; RESP 16–20; TEMP 97.5–100.1; O2SAT 92–99
[2024-04-16] MEDS: SODIUM CHLORIDE 0.9% 1000ML 1,000 ML IV SCH (00:42)
[2024-04-16] MEDS: SENNOSIDES 8.6 MG TAB PO SCH (09:00)
[2024-04-16] MEDS: ASPIRIN 81 MG CHEW TAB PO SCH (09:01)
[2024-04-16] MEDS: PANTOPRAZOLE SOD 40 MG TABEC PO SCH (09:01)
[2024-04-16] MEDS: AMLODIPINE BESYLATE 5 MG TAB PO SCH (09:01)
[2024-04-16] MEDS: CLOPIDOGREL BISULFATE 75 MG TAB PO SCH (09:02)
[2024-04-16] MEDS ORDERED: DEXTROSE 50% SYRINGE 50 ML IV PRN ×2 (12:00)
[2024-04-16] MEDS: INSULIN REGULAR, HUMAN 100 UNIT/1 ML SQ SCH (16:31)
[2024-04-16] MEDS: ALBUTEROL/IPRATROPIUM 3 ML NEB NEB PRN (16:58)
[2024-04-16] MEDS: ACETAMINOPHEN 325 MG TAB PO PRN (20:38)
[2024-04-17] VITALS (11 sets, daily range): BP systolic 92–127; BP diastolic 52–66; PULSE 76–86; RESP 16–20; TEMP 98.1–99.3; O2SAT 95–100
[2024-04-17] MEDS: BENZONATATE 100 MG CAP PO SCH (14:17)
[2024-04-17] MEDS: GUAIFENESIN/DEXTROMETHORPHAN LIQD 5 ML UDC NG PRN (16:30)
[2024-04-17] MEDS: Vancomycin IV 1 GM in SODIUM CHLORIDE 0.9% 250ML 250 ML IV SCH (20:34)
[2024-04-18] VITALS (13 sets, daily range): BP systolic 73–118; BP diastolic 42–70; PULSE 75–93; RESP 17–20; TEMP 97.7–101.7; O2SAT 93–100
[2024-04-18] MEDS ORDERED: ACETAMINOPHEN325 M1 PO (08:20)
[2024-04-18] MEDS ORDERED: CIPRO500 MG PO (08:20)
[2024-04-18] MEDS ORDERED: ULTRAM 50MG50 MG PO (08:20)
[2024-04-18] MEDS ORDERED: DOXYCYCLINE HY100 MG PO (08:20)
[2024-04-18 08:37] LABS: ANION GAP 12.4 mmol/L (8-16); CALCIUM 8.9 mg/dL (8.4-10.2); CREATININE, SERUM 1.37 mg/dL (0.57-1.11); POTASSIUM 4.4 mmol/L (3.5-5.1)
[2024-04-18 10:17] LABS: BASOPHILS % 0.3 % (0.0-1.0); EOSINOPHILS # (AUTO) 0.1 (0.0-0.4); EOSINOPHILS % 0.6 % (0.0-6.0); LYMPHOCYTES # (AUTO) 2.1 (1.0-3.2); LYMPHOCYTES % 23.4 % (18.0-39.1); MEAN CORPUSCULAR HGB CONC 28.8 g/dL (31-35); MONOCYTES # (AUTO) 0.8 (0.2-0.8); MONOCYTES % 9.1 % (4.4-11.3); NEUTROPHILS # (AUTO) 5.9 (2.1-6.9); NEUTROPHILS % 66.2 % (38.7-80.0); PLATELET COUNT 213 x10e3/uL (140-360); RED BLOOD COUNT 2.33 x10e6/uL (3.6-5.1); RED CELL DISTRIBUTION WIDTH 17.6 % (11.7-14.4); WHITE BLOOD COUNT 8.93 x10e3/uL (4.8-10.8)
[2024-04-18 10:21] LABS: HEMOGLOBIN 6.3 g/dL (12.0-16.0)
[2024-04-18 10:22] LABS: HEMATOCRIT 21.9 % (34.2-44.1)
[2024-04-18] MEDS ORDERED: SODIUM CHLORIDE 0.9% 250ML 250 ML IV ONE (10:45)
[2024-04-18] MEDS ORDERED: SODIUM CHLORIDE 0.9% 1000ML 1,770 ML IV STA (17:22)
[2024-04-18] MEDS ORDERED: SODIUM CHLORIDE 0.9% 250ML 250 ML ONE ×2 (18:42→22:46)
[2024-04-18] MEDS: SODIUM CHLORIDE 0.9% 1000ML 1,000 ML IV ONE (23:07)
[2024-04-19] VITALS (8 sets, daily range): BP systolic 105–131; BP diastolic 58–88; PULSE 72–79; RESP 16–20; TEMP 98.1–98.8; O2SAT 92–100
[2024-04-19 06:12] LABS: BASOPHILS # (AUTO) 0.1 (0.0-0.1); BASOPHILS % 0.7 % (0.0-1.0); EOSINOPHILS % 0.3 % (0.0-6.0); HEMATOCRIT 27.7 % (34.2-44.1); HEMOGLOBIN 8.4 g/dL (12.0-16.0); LYMPHOCYTES # (AUTO) 2.6 (1.0-3.2); LYMPHOCYTES % 29.7 % (18.0-39.1); MEAN CORPUSCULAR HEMOGLOBIN 28.4 pg (28-32); MEAN CORPUSCULAR HGB CONC 30.3 g/dL (31-35); MEAN CORPUSCULAR VOLUME 93.6 fL (81-99); MONOCYTES # (AUTO) 1.1 (0.2-0.8); NEUTROPHILS % 56.8 % (38.7-80.0); PLATELET COUNT 180 x10e3/uL (140-360); RED BLOOD COUNT 2.96 x10e6/uL (3.6-5.1); RED CELL DISTRIBUTION WIDTH 16.7 % (11.7-14.4); WHITE BLOOD COUNT 8.86 x10e3/uL (4.8-10.8)
[2024-04-19 15:24] LABS: HEMATOCRIT 28.2 % (34.2-44.1); HEMOGLOBIN 8.5 g/dL (12.0-16.0)
[2024-04-19 15:39] LABS: CALCIUM 8.6 mg/dL (8.4-10.2); CREATININE, SERUM 1.49 mg/dL (0.57-1.11)
== END 2024-04-19 18:47 | disposition home or self-care (01) | DRG 580 ==
LOC: ER 15:34 → ERHOLD 17:27 → MED/SURG3 20:10 → OBSVTOIN 04-16 11:49
PROVIDERS: ADMIT Internal Medicine; ATTEND Internal Medicine
PROC: 0KBR0ZZ Excision of Left Upper Leg Muscle, Open Approach (ICD-10-PCS; 2024-04-15)
PROC: 0KBT0ZZ Excision of Left Lower Leg Muscle, Open Approach (ICD-10-PCS; principal; 2024-04-15 13:11)
PROC: 30233N1 Transfusion of Nonautologous Red Blood Cells into Peripheral Vein, Percutaneous Approach (ICD-10-PCS; 2024-04-18)
DX: L02.416 Cutaneous abscess of left lower limb (principal); D62 Acute posthemorrhagic anemia; E87.20 Acidosis, unspecified; N17.9 Acute kidney failure, unspecified; L03.116 Cellulitis of left lower limb; E11.22 Type 2 diabetes mellitus with diabetic chronic kidney disease; I12.9 Hypertensive chronic kidney disease with stage 1 through stage 4 chronic kidney disease, or unspecified chronic kidney disease; N18.9 Chronic kidney disease, unspecified; E11.51 Type 2 diabetes mellitus with diabetic peripheral angiopathy without gangrene; Z79.84 Long term (current) use of oral hypoglycemic drugs; E78.5 Hyperlipidemia, unspecified; D64.9 Anemia, unspecified; Z71.3 Dietary counseling and surveillance; Z68.24 Body mass index [BMI] 24.0-24.9, adult; Z89.421 Acquired absence of other right toe(s); Z79.899 Other long term (current) drug therapy; Z79.82 Long term (current) use of aspirin; Z79.02 Long term (current) use of antithrombotics/antiplatelets
CPT/HCPCS: 36415; 36568; 73701; 80048; 80053; 80061; 80202; 82948; 83036; 83880; 85014; 85018; 85025; 85610; 85730; 86850; 86900; 86920; 87040; 87071; 87075; 87081; 87205; 93971; 94640; 94799; 99252; 99284; G0378; J0696; J1650; J2003; J2270; J2405; J2765; J7030; J7050; P9016; Q9967